=== PATIENT | female | born 1935 | race Caucasian/White ===

== ENCOUNTER 2017-12-01 14:20 | Emergency (ER) | payer MEDICARE ==
[~2017-12-01] VITALS: Ht 180.3 cm; Wt 64.0 kg
[~2017-12-01 14:20] MED LIST: AMLODIPINE BESY10 MG PO; AMLODIPINE BESYL5 MG PO; ASPIR 8181 MG PO; ATIVAN0.5 MG PO; BIOTIN PO; BUSPIRONE HCL5 MG PO; DOXAZOSIN MESYLA2 MG PO; FISH OIL500 M1 PO; FLURBIPROFEN50 MG PO; FOLIC PO; FUROSEMIDE40 MG PO; HYDROCODON-ACE1 EA12 PO; MACRODANTIN100 MG PO; NAMENDA10 MG; NITROFURANTOIN100 MG PO; PAROXETINE HCL40 MG PO; SIMVASTATIN40 MG PO; VIT B CMPLX PO; VITAMIN B-12 PO; VITAMIN B-6 PO; VITAMIN C PO; [UNRECOGNIZED DRUG - OTHER] PO
--- OUTSIDE RECORDS SUMMARY | 2017-12-01 14:24 | XMS REPORT ---
Author Author [facility] Address Unknown Phone Unavailable Care Team Providers Care Machining Associate Name Role Phone SHERLEY CLAROS Unavailable Unavailable Problems This patient has no known problems. Allergies, Adverse Reactions, Alerts This patient has no known allergies or adverse reactions. Medications This patient has no known medications. Results Test Description Test Time Test Comments Text Results Atomic Results Result Comments MRI BRAIN WO [place] [address] Patient Name: SHERRON NEW MR #: [id number] : 1935 Age/Sex: 81/F Req # : [id number] Adm Physician: SHERLEY CLAROS MD Ordered by: ALPHONSE HOYT MD Report #: [id number] Location: [facility] Room/Bed: [facility] ____ Procedure: [id number] MRI/MRI BRAIN WO Exam Date: 06/30/17 Exam Time: 0850 REPORT STATUS: Signed Examination: MRI BRAIN WITHOUT CONTRAST History: Left arm tingling, weakness and difficulty with speech. Comparison studies: Head CT performed earlier the same day, June 30, 2017. Technique: Sagittal T2; axial DWI, FLAIR, GRE or SWI, T1, Coronal FLAIR. Intravenous contrast: None Findings: Scalp: No abnormal signal. No masses. Bone marrow: Normal in signal intensity. Brain volume: Adequate for age. No volume loss. Ventricles: Normal in size and configuration. No hydrocephalus. Extra-axial spaces : No abnormalities. Parenchyma: There are punctate and confluent areas of T2/FLAIR hyperintensity in the periventricular and subcortical white matter , nonspecific. No masses, hemorrhage, or acute vascular insults. Suprasellar and sellar region: No abnormalities. Craniocervical junction: No abnormalities. The foramen magnum is patent. No Chiari malformations. Vessels: Normal flow-voids in the arteries and sinuses. Additional findings :Bilateral slitlike orbital lenses. IMPRESSION: 1. No acute intracranial abdomen, specifically, no acute infarct. 2. Mild chronic microvascular ischemic change. Signed by: Dr. Dione Troncoso M.D. on 06/30 9:58 AM Dictated By: DIONE MOISE MD 7 Transcribed By: ALONDRA on 06/30/17957 COPY TO: ALPHONSE HOYT MD CT BRAIN WO [place] [address] Patient Name: SHERRON NEW MR #: [id number] : 1935 Age/Sex: 81/F Req # : [id number] Adm Physician: Ordered by: ALPHONSE HOYT MD Report # : [id number] Location: ER Room/Bed: Procedure: [id number] CT/CT BRAIN WO Exam Date: 06/30/17 Exam Time: 0610 REPORT STATUS: Signed History:Left-sided weakness Comparison studies:None Technique: Axial images were obtained from the skull base to the vertex. Coronal and sagittal images reconstructed from the axial data. Intravenous contrast: None Findings: Scalp/skull: No abnormalities. Extra-axial spaces: Left retrocerebellar arachnoid cyst. No fluid collections. Brain sulci: Mildly prominent. Ventricles: Mild compensatory dilatation. No hydrocephalus. Parenchyma: Few hypodensities in the supratentorial white matter are small vessel ischemic changes. No masses, hemorrhage, acute or chronic cortical vascular insults. Sellar/suprasellar region: No abnormalities. Craniocervical junction: Patent foramen magnum. No Chiari one malformation. Incidental findings: Atherosclerotic calcifications in the carotid siphons . Impression: No acute abnormalities. Chronic findings: 1. Mild generalized volume loss. 2. Mild supratentorial white matter small vessel ischemic changes. Signed by: DR Santos Win M.D. on 06/30/2017 6:30 AM Dictated By: SANTOS KELLEY MD 9 COPY TO: ALPHONSE HOYT MD CHEST SINGLE (PORTABLE) [place] [address] Patient Name: SHERRON NEW MR #: [id number] : 1935 Age/Sex: 81/F Req #: [id number] Adm Physician: Ordered by: ALPHONSE HOYT MD Report #: [id number] Location: ER Room/Bed: ___ Procedure: [id number] DX/CHEST SINGLE (PORTABLE) Exam Date: 06/30/17 Exam Time: 619 REPORT STATUS: Signed CHEST SINGLE (PORTABLE), 06/30/2017 5:58 AM Technique: CHEST SINGLE (PORTABLE) Comparison: None available. Clinical history: Shortness of breath Findings: Heart size is within normal limits. Mildly tortuous thoracic aorta. Linear right midlung atelectasis or scarring. No consolidation, effusion or pneumothorax. Scoliotic curvature of the spine. Impression: 1. Lines/ Tubes: None 2. No acute abnormality. Signed by: Dr Isauro Colin MD on 6:39 AM Dictated By: ISAURO COLIN MD 8 Transcribed By: ALONDRA on 06/30/17638 COPY TO: ALPHONSE HOYT MD
--- OUTSIDE RECORDS SUMMARY | 2017-12-01 14:24 | XMS REPORT | Clinical Summary ---
Author Author [facility] Organization [facility] Address Unknown Phone Unavailable Care Team Providers Care Gastroenterology Manager Name Role Phone Travis Montgomery MD PCP Allergies Active Allergy Reactions Severity Noted Date Comments Cephalexin 03/17/2017 Morphine Other (See Comments) 03/17/2017 hallucinations Pentazocine Lactate Other (See Comments) 03/17/2017 headache Tramadol Other (See Comments) 03/17/2017 confusion Iodine Rash Low 03/17/2017 Nitrofurantoin Rash Low 03/17/2017 Monohyd/M-Cryst Current Medications Prescription Sig. Disp. Refills Start End Date Status Date amLODIPine (NORVASC) 10 Take 10 mg by mouth Active mg tablet daily. atorvastatin (LIPITOR) 40 Take 40 mg by mouth Active MG tablet daily. acetaminophen-codeine Take 1 tablet by mouth Active (TYLENOL WITH CODEINE #3) every 6 (six) hours as 300-30 mg per tablet needed for moderate pain. biotin 10,000 mcg capsule Take 1 tablet by mouth Active daily. cholecalciferol, vitamin Take 1,000 Units by mouth Active D3, (VITAMIN D3) 1,000 daily. unit capsule furosemide (LASIX) 40 mg Take 40 mg by mouth 2 Active tablet (two) times a day as needed. B complex with C#20-folic Take by mouth daily. Active acid 1 mg capsule aspirin (ECOTRIN) 81 MG Take 81 mg by mouth 04/05/20 Discontin enteric coated tablet daily. 17 ued rivaroxaban (XARELTO) 10 Take 1 tablet (10 mg 30 tablet 0 04/05/20 05/05/20 mg tablet total) by mouth daily for 17 17 30 days. HYDROcodone-acetaminophen Take 1 tablet by mouth 04/05/20 04/25/20 (NORCO) 5-325 mg per every 6 (six) hours as 17 17 tablet needed for severe pain for up to 60 doses. Max Daily Amount: 4 tablets Active Problems Problem Noted Date Primary osteoarthritis of right knee 04/02/2017 Encounters Date Type Specialty Care Team Description 11/04/2017 Hospital Radiology Basim Parekh MD Right knee pain, Encounter unspecified chronicity;Left knee pain, unspecified chronicity 11/04/2017 Ancillary Access Basim Parekh MD Right knee pain, Orders unspecified chronicity;Left knee pain, unspecified chronicity 11/04/2017 Ancillary Access Basim Parekh MD Right knee pain, Orders unspecified chronicity;Left knee pain, unspecified chronicity 11/04/2017 Transcribe Access Basim Parekh MD Right knee pain, Orders unspecified chronicity (Primary Dx);Left knee pain, unspecified chronicity 07/09/2017 Hospital Radiology Basim Parekh MD Presence of both Encounter artificial knee joints 07/09/2017 Ancillary Access Basim Parekh MD Presence of both Orders artificial knee joints 07/09/2017 Transcribe Access Basim Parekh MD Presence of both Orders artificial knee joints (Primary Dx) 04/17/2017 Lab Lab Basim Parekh MD Right knee pain, unspecified chronicity (Primary Dx) 04/02/2017 [facility] General Surgery Basim Parekh MD Primary osteoarthritis of - Encounter right knee 04/05/2017 04/02/2017 Anesthesia General Surgery Andrea Tellez 04/02/2017 Procedure Pass General Surgery 04/02/2017 Surgery General Surgery Basim Parekh MD ARTHROPLASTY, KNEE, TOTAL RIGHT 03/17/2017 Hospital Radiology Basim Parekh MD Encounter 02/12/2017 Hospital Radiology Basim Parekh MD Osteoarthrosis, Encounter localized, primary, involving lower leg, right 02/11/2017 Transcribe Access Basim Parekh MD Osteoarthrosis, Orders localized, primary, involving lower leg, right (Primary Dx) after 11/30/2016 Family History Medical History Relation Name Comments Heart disease Brother Asthma Father Diabetes Father Relation Name Status Comments Brother Father Mother organ failure Social History Tobacco Use Types Packs/Day Years Used Date Former Smoker Cigarettes 30 Quit: 04/02/1985 Comments: 3 cigs per day Alcohol Use Drinks/Week oz/Week Comments Yes social Sex Assigned at Date Recorded Not on file Last Filed Vital Signs Vital Sign Reading Time Taken Blood Pressure 112/57 04/05/2017 11:30 AM CDT Pulse 96 04/05/2017 11:30 AM CDT Temperature 36.8 C (98.3 F) 04/05/2017 11:30 AM CDT Respiratory Rate 18 04/05/2017 11:30 AM CDT Oxygen Saturation 94% 04/05/2017 11:30 AM CDT Inhaled Oxygen - - Concentration Weight 68.6 kg (151 lb 3 oz) 04/03/2017 8:00 AM CDT Height 149.9 cm (4' 11") 04/03/2017 8:00 AM CDT Body Mass Index 30.54 04/03/2017 8:00 AM CDT Plan of Treatment Health Maintenance Due Date Last Done Comments ZOSTER VACCINE 1995 PNEUMOCOCCAL-13 2000 INFLUENZA VACCINE 05/27/2017 09/15/2011 PNEUMOCOCCAL Completed 09/15/2011 POLYSACCHARIDE VACCINE AGE 65 AND OVER Implants Implanted Type Area Machine Presser Device Expiration Model / Identifier Date Serial / Lot Itotal Ps Ipoly Implant Kit - IPM Right: [employer] 09/25/2017 [id number] - [id number] IMPLANT Knee / Implanted: Qty: 1 on 04/02/2017 by DEVICES [id number] / Basim Parekh MD NONE 32x6mm Patella - Snone - [id number] IPM Right: [employer] 2017 [id number] Implanted: Qty: 1 on 04/02/2017 by IMPLANT Knee / Basim Parekh MD DEVICES NONE / [id number] [employer] Bone [employer]iv[employer] With Gm 40gr Orthopedic Right: [employer] 04/25/2018 [id number] / [place] - [id number] [employer] / Implanted: Qty: 2 on 04/02/2017 by Implants [id number] Basim Parekh MD Procedures Procedure Name Priority Date/Time Associated Diagnosis Comments ANESTHESIA INTUBATION Routine 04/02/2017 2:32 PM CDT Procedure Note - Andrea Tellez - 04/02/2017 2:27 PM CDT Airway Date/Time: 04/02/2017 12:16 PM Performed by: ANDREA TELLEZ Authorized by: ATILIO GROVE Location: OR Urgency: Elective Difficult Airway: No Anesthesio logist: ATILIO GROVE Other Anesthesia Staff: ANDREA TELLEZ Performed by: other anesthesia staff Preoxygena taj with 100% O2: Yes C-spine Precaution s Maintained Throughout : Yes Mask Ventilatio n: Easy mask Final Airway Type: Endotrache al airway Final Endotrache al Airway: ETT Cuffed: Yes Technique Used: Direct laryngosco py Insertion Site: Oral Blade Type: [place] Laryngosco pe Blade/Vide olaryngosc ope Blade Size: 2 ETT Size (mm): 7.0 Cuff at minimum occlusion pressure: Yes Measured from: Teeth ETT to Teeth (cm): 19 Placement Verified by: CO2 detection, direct visualizat ion and equal breath sounds Laryngosco pic view: Grade I - full view of glottis Rapid Sequence Induction (RSI): No Modified RSI: No Number of Attempts at Approach: 1 Lips and teeth in preanesthe tic condition ANESTHESIA PERIPHERAL Routine 04/02/2017 BLOCK 11:08 AM CDT Procedure Note - Atilio Grove MD - 04/02/2017 11:06 AM CDT Peripheral Block Performed by: ATILIO GROVE Authorized by: ATILIO GROVE Patient Location: Holding area Start Time: 04/02/2017 10:50 AM End Time: 04/02/2017 11:06 AM Staff: Anesthesio mingot: ATILIO GROVE Performed by: Anesthesio kadie Preprocedu re: patient identified , IV checked, site and side verified, risks and benefits discussed, procedure verified, surgical consent complete, patient position confirmed, monitors and equipment checked, pre-op evaluation complete and site marked Peripheral Nerve Block: Patient Position: Supine Prep: ChloraPrep Monitoring : Blood pressure monitoring , continuous pulse oximetry and heart rate Block Type: Lateral femoral cutaneous nerve Laterality : Right Injection Technique: Single injection Procedures : ultrasound guided Ultrasound documentat ion: Not saved Local Infiltrati on (See MAR for details): Ropivacain e Needle: Needle Type: Short-beve l Needle Gauge: 21 G Needle Length: 4 in Assessment : Injection Assessment : Visualized needle/loc al anesthetic surroundin g nerve, visualized pertinent vascular structures and nerves, needle tip visualized at all times during injection of medication , no symptoms of intraneura l/intraven ous injection and intermitte nt aspiration during local anesthetic administra tion Paresthesi a Pain: None Heart Rate Change: No Slow Fractionat ed Injection: No Block outcome: No apparent complicati ons, patient comfortabl e and patient tolerated procedure well ARTHROPLASTY, KNEE, TOTAL 04/02/2017 RIGHT KNEE OA M17.11 RIGHT 10:40 AM CDT Special Needs 04/01/17 @1117 1 jason oliver here for case...[facility] 03/25/17 @1422 notified [facility] of procedure. ..smaCONFO RMIS after 11/30/2016 Results * XR Knee 3 Vw Bilateral (11/04/2017 10:45 AM) Specimen Performing Laboratory [facility] [address] [place] [address] Narrative EXAMINATION:XR KNEE 3 VW BILATERAL CLINICAL HISTORY:M25.561 Pain in right knee, M25.562 Pain in left knee, M25.661 COMPARISON:None. IMPRESSION: Postoperative radiograph demonstrates a right total knee prosthesis.There is normal alignment with no fracture. [facility]-[id number] Procedure Note Interface, Radiology Results Incoming - 11/04/2017 11:14 AM MARKETING INFORMATION MANAGER EXAMINATION: XR KNEE 3 VW BILATERAL CLINICAL HISTORY: M25.561 Pain in right knee, M25.562 Pain in left knee, M25.661 COMPARISON: None. IMPRESSION: Postoperative radiograph demonstrates a right total knee prosthesis. There is normal alignment with no fracture. [facility]-[id number] * XR Knee 1 Or 2 Vw Bilateral (07/09/2017 12:40 PM) Specimen Performing Laboratory [facility] [address] [place] [address] Narrative EXAMINATION:XR KNEE 1 OR 2 VW BILATERAL CLINICAL HISTORY:Z96.653 Presence of artificial knee jointbilateral, Z96.653 ARTIFICIAL KNEE COMPARISON:April 02, 2017 IMPRESSION: 1.Evaluation of the right knee demonstrates postsurgical changes relating to total right knee arthroplasty. There is hardware along the distal right femur and proximal tibia. There are also postsurgical changes involving the patella. Alignment is satisfactory. 2.2 view evaluation of the left knee demonstrates no evidence to suggest an acute fracture. Alignment is normal and articulation is intact. [id number] Procedure Note Interface, Radiology Results Incoming - 07/09/2017 1:19 PM CDT EXAMINATION: XR KNEE 1 OR 2 VW BILATERAL CLINICAL HISTORY: Z96.653 Presence of artificial knee joint bilateral, Z96.653 ARTIFICIAL KNEE COMPARISON: April 02, 2017 IMPRESSION: 1. Evaluation of the right knee demonstrates postsurgical changes relating to total right knee arthroplasty. There is hardware along the distal right femur and proximal tibia. There are also postsurgical changes involving the patella. Alignment is satisfactory. 2. 2 view evaluation of the left knee demonstrates no evidence to suggest an acute fracture. Alignment is normal and articulation is intact. [id number] * Body fluid consult (04/17/2017 9:23 AM) Component Value Ref Range Body fluid consult DoneComment: Reviewed by Dr. Jasmine 04/17/17: Agree with cell count. Specimen Performing Laboratory Fluid [facility] DEPARTMENT OF PATHOLOGY AND GENOMIC MEDICINE [address] [place] [address] [place] [address] * Cell count and differential, body fluid (04/17/2017 9:23 AM) Component Value Ref Range Misc fluid type Synovial Color, fluid Red Appearance, fluid Cloudy (A) RBC, fluid 27519 /CMM Nucleated cells, fluid 1400 /CMM Fluid mononuclear cell 1 Neutrophils, fluid 77 % Lymphocytes, fluid 22 % Specimen Performing Laboratory Fluid [facility] DEPARTMENT OF PATHOLOGY AND GENOMIC MEDICINE [address] [place] [address] [place] [address] * Hemoglobin & hematocrit (04/05/2017 11:13 AM) Only the most recent of 4 results within the time period is included. Component Value Ref Range HGB 9.5 (L) 12.0 - 16.0 g/dL HCT 27.9 (L) 37.0 - 47.0 % Specimen Performing Laboratory Blood [facility] DEPARTMENT OF PATHOLOGY AND [address] [place] [address] * Estimated GFR (04/03/2017 5:15 AM) Only the most recent of 2 results within the time period is included. Component Value Ref Range GFR Non Af Amer >90 mL/min/1.73 m2 GFR Af Amer >90 mL/min/1.73 m2 Comment: Chronic kidney disease: <60 mL/min/1.73m2 Kidney failure: <15 mL/min/1.73m2 The estimated GFR is calculated from the IDMS-traceable Modification of Diet in Renal Disease Equation. The accuracy of the calculation is poor when the creatinine is normal. Calculated values >90 mL/min/1.73m2 are not reported. This equation has not been validated in children (<18 years), women, the elderly (>70 years), or ethnic groups other than Caucasians and Americans. Specimen Performing Laboratory Plasma specimen [facility] DEPARTMENT PATHOLOGY AND [address] [place] [address] * Creatinine level (04/03/2017 5:15 AM) Component Value Ref Range Creatinine 0.6 0.5 - 0.9 mg/dL Specimen Performing Laboratory Plasma specimen [facility] DEPARTMENT PATHOLOGY AND [address] [place] [address] * XR Knee 1 Or 2 Vw Right (04/02/2017 5:15 PM) Specimen Performing Laboratory [facility] [address] [place] [address] Narrative EXAMINATION:XR KNEE 1 OR 2 VW RIGHT CLINICAL HISTORY:total knee arthoplasty COMPARISON:None. Findings: The patient is post right total knee arthroplasty. The components appear well seated. There are drains noted in the suprapatellar bursa. IMPRESSION: Postop right total knee arthroplasty. [id number] Procedure Note Interface, Radiology Results Incoming - 04/02/2017 6:33 PM CDT EXAMINATION: XR KNEE 1 OR 2 VW RIGHT CLINICAL HISTORY: total knee arthoplasty COMPARISON: None. Findings: The patient is post right total knee arthroplasty. The components appear well seated. There are drains noted in the suprapatellar bursa. IMPRESSION: Postop right total knee arthroplasty. [id number] * Surgical pathology request (04/02/2017 4:44 PM) Component Value Ref Range Surgical pathology report See link below for PDF Lab Report Specimen Performing Laboratory [facility] DEPARTMENT PATHOLOGY AND [address] [place] [address] * Type and screen (03/31/2017 12:04 PM) Component Value Ref Range ABO grouping O Rh type POS Antibody screen NEG Specimen Performing Laboratory Blood [facility] DEPARTMENT PATHOLOGY AND [address] [place] [address] * XR Chest 2 Vw (03/17/2017 3:33 PM) Specimen Performing Laboratory [facility] [address] [place] [address] Narrative EXAMINATION:XR CHEST 2 VW CLINICAL HISTORY:81 years Female M17.11 Unilateral primary osteoarthritis right knee, preop [facility] COMPARISON:None IMPRESSION: 1.Heart size and central vasculature normal. The thoracic aorta is calcified and tortuous. 2.The lungs are clear. 3.The bones are demineralized with degenerative changes in the spine. There is some leftward curvature in the thoracic spine. [id number] Procedure Note Hm Interface, Radiology Results Incoming - 03/17/2017 3:49 PM CDT EXAMINATION: XR CHEST 2 VW CLINICAL HISTORY:81 years Female M17.11 Unilateral primary osteoarthritis right knee, preop [facility] COMPARISON: None IMPRESSION: 1. Heart size and central vasculature normal. The thoracic aorta is calcified and tortuous. 2. The lungs are clear. 3. The bones are demineralized with degenerative changes in the spine. There is some leftward curvature in the thoracic spine. [id number] * ECG 12 lead (03/17/2017 3:00 PM) Component Value Ref Range Ventricular rate 74 Atrial rate 74 VA interval 162 QRSD interval 78 QT interval 396 QTC interval 439 P axis 1 56 QRS axis 1 27 T wave axis 34 EKG impression Normal sinus rhythm with sinus arrhythmia-Cannot rule out Anterior infarct , age undetermined-Abnormal ECG-No previous ECGs available- Specimen Performing Laboratory [facility] [address] [place] [address] * Urinalysis screen and microscopy, with reflex to culture (03/17/2017 2:09 PM) Component Value Ref Range Specimen site Clean catch Color, UA Yellow Appearance, UA Slightly-Cloudy Specific gravity, UA 1.018 1.001 - 1.035 pH, UA 5.0 5.0 - 8.5 Protein, UA Negative Negative Glucose, UA Negative Negative Ketones, UA Trace (A) Negative Bilirubin, UA Negative Negative Blood, UA Negative Negative Nitrite, UA Negative Negative Urobilinogen, UA Negative <2.0 Leukocyte esterase, UA Negative Negative Epithelial cells, UA Many /HPF WBC, UA 0-5 0 - 4 /HPF RBC, UA 0-5 0 - 2 /HPF Bacteria, UA Few None seen Yeast, UA None seen Yeast with pseudohyphae, None seen UA Hyaline casts, UA 11-20 /LPF Specimen Performing Laboratory Urine [facility] DEPARTMENT OF PATHOLOGY AND GENOMIC MEDICINE [address] [place] [address] * Partial thromboplastin time, activated (03/17/2017 2:09 PM) Component Value Ref Range PTT 28.1 23.0 - 36.0 sec Comment: PTT therapeutic range for unfractionated heparin is 61.0-112.0 seconds which corresponds to Anti-Xa 0.3-0.7 U/ml. Specimen Performing Laboratory Blood [facility] DEPARTMENT OF PATHOLOGY AND [facility] [address] [place] [address] * Sedimentation rate (03/17/2017 2:09 PM) Component Value Ref Range Sedimentation rate 36 (H) 0 - 20 mm/hr Specimen Performing Laboratory Blood [facility] DEPARTMENT OF PATHOLOGY AND [facility] [address] [place] [address] * Prothrombin time with INR (03/17/2017 2:09 PM) Component Value Ref Range Prothrombin time 13.4 12.0 - 15.0 sec INR 1.0 Comment: The International Normalized Ratio (INR) is a therapeutic monitoring tool for patients who are stable on oral anticoagulant therapy. An INR of 2.0-3.0 is suggested for deep vein thrombosis/pulmonary embolism. Specimen Performing Laboratory Blood [facility] DEPARTMENT OF PATHOLOGY AND [facility] [address] [place] [address] * CBC with platelet and differential (03/17/2017 2:09 PM) Component Value Ref Range WBC 8.34 4.50 - 11.00 k/uL RBC 4.36 4.20 - 5.50 m/uL HGB 13.4 12.0 - 16.0 g/dL HCT 39.4 37.0 - 47.0 % MCV 90.4 82.0 - 100.0 fL MCH 30.7 27.0 - 34.0 pg MCHC 34.0 31.0 - 37.0 g/dL RDW - SD 40.6 37.0 - 55.0 fL MPV 10.6 8.8 - 13.2 fL Platelet count 204 150 - 400 k/uL Nucleated RBC 0.00 /100 WBC Neutrophils 56.0 39.0 - 69.0 % Lymphocytes 36.0 25.0 - 45.0 % Monocytes 6.4 0.0 - 10.0 % Eosinophils 1.4 0.0 - 5.0 % Basophils 0.0 0.0 - 1.0 % Immature granulocytes 0.2Comment: "Immature granulocytes" 0.0 - 1.0 % (promyelocytes, myelocytes, metamyelocytes) Specimen Performing Laboratory Blood [facility] PATHOLOGY AND [address] [place] [address] * Urine culture (03/17/2017 2:09 PM) Component Value Ref Range Urine culture SEE COMMENTComment: Bacteriuria screen negative. Specimen Performing Laboratory Urine [facility] PATHOLOGY AND [address] [place] [address] * MRSA screen culture (03/17/2017 2:09 PM) Component Value Ref Range MRSA screen culture No Methicillin Resistant Staphylococcus aureus isolate isolated. Comment: Specimen Information Specimen Source: Nares Specimen Site: Not specified Specimen Performing Laboratory Nares - Not specified [facility] PATHOLOGY AND [address] [address] * Basic metabolic panel (03/17/2017 2:09 PM) Component Value Ref Range Sodium 142 135 - 148 mEq/L Potassium 3.9 3.5 - 5.0 mEq/L Chloride 99 98 - 112 mEq/L CO2 28 24 - 31 mEq/L Anion gap 15 7 - 15 mEq/L Comment: Starting from January , anion gap calculation no longer incorporates potassium. Please note the change. BUN 15 8 - 23 mg/dL Creatinine 0.8 0.5 - 0.9 mg/dL Glucose 109 (H) 65 - 99 mg/dL Calcium 10.3 (H) 8.8 - 10.2 mg/dL Specimen Performing Laboratory Plasma specimen [facility] PATHOLOGY [address] [place] [address] * CT Lower Extremity Wo Contrast Right (02/12/2017 9:43 AM) Specimen Performing Laboratory [address] LOWER EXTREMITY WO CONTRAST RIGHT CLINICAL INDICATION:M17 11 Order diagnosis - Unilateral primary osteoarthritisright knee TECHNIQUE:Multidetector CT of the right knee was performed without intravenous iodinated contrast with automated exposure control and/or iterative reconstruction techniques to radiation dose. Images were performed per [employer] protocol. COMPARISON:None FINDINGS: HIP: The right hip demonstrates no fracture or significant osteoarthritis ANKLE: No fracture or suspicious osseous lesion. Mild enthesopathic changes at the Achilles insertion. KNEE: Moderate osteoarthritic changes of the knee are present with joint space narrowing, subchondral cysts and osteophyte formation, greater in the lateral than medial femorotibial compartments. Spurring of the patellofemoral compartment is also noted with a small joint effusion and Ledesma's cyst. SOFT TISSUES: Periarticular tissues about the knee are unremarkable apart from mild superficial lateral varicosities. There is no significant muscle atrophy. IMPRESSION: Osteoarthritis of the knee on planning prosthesis CT as described. Thank you for allowing us to participate in the care of your patient. [id number] Procedure Note Hm Interface, Radiology Results Incoming - 02/12/2017 10:[address] LOWER EXTREMITY WO CONTRAST RIGHT CLINICAL INDICATION: M17 11 Order diagnosis - Unilateral primary osteoarthritis right knee TECHNIQUE: Multidetector CT of the right knee was performed without intravenous iodinated contrast with automated exposure control and/or iterative reconstruction techniques to radiation dose. Images were performed per [employer] protocol. COMPARISON: None FINDINGS: HIP: The right hip demonstrates no fracture or significant osteoarthritis ANKLE: No fracture or suspicious osseous lesion. Mild enthesopathic changes at the Achilles insertion. KNEE: Moderate osteoarthritic changes of the knee are present with joint space narrowing, subchondral cysts and osteophyte formation, greater in the lateral than medial femorotibial compartments. Spurring of the patellofemoral compartment is also noted with a small joint effusion and Ledesma's cyst. SOFT TISSUES: Periarticular tissues about the knee are unremarkable apart from mild superficial lateral varicosities. There is no significant muscle atrophy. IMPRESSION: Osteoarthritis of the knee on planning prosthesis CT as described. Thank you for allowing us to participate in the care of your patient. [id number] after 11/30/2016 Insurance Payer Benefit Subscriber ID Type Phone Address Plan / Group [employer] MEDICARE AARP [id number] HMO MEDICARE COMPLETE [facility] [place] [address]
== END 2017-12-01 16:04 | disposition home or self-care (01) ==
LOC: ER 14:20
DX: R10.31 Right lower quadrant pain (principal); I10 Essential (primary) hypertension
CPT/HCPCS: 99281

== ENCOUNTER → 2018-03-24 | Outpatient (CLI) | payer MEDICARE ==
--- NOTE | 2018-03-24 19:47 | Diagnostic Imaging Report ---
PROCEDURE:X-RAY PELVIS, AP VIEW COMPARISON:None. INDICATIONS:INTERSTIM PLACEMENT FINDINGS: Normal mineralization. No acute displaced fracture or dislocation. No lytic or blastic lesion. Sacral arches are preserved. Neural stimulator device in the soft tissues of the left posterior pelvis/gluteal region, with a distal portion of the wire, likely traversing the left S4 neural foramen. 3 mm rounded radiopaque density projecting between the left transverse processes of L4 and L5. No other radiopaque densities. No acute bony abnormalities. Calcified injection granuloma in the left gluteal soft tissues. CONCLUSION: 1. Neural stimulator device in the soft tissues of the left posterior pelvis/gluteal region, with distal portion of the wire, likely traversing the left S4 neural foramen. 2. 3 mm radiopaque density projecting between the left transverse processes of L4 and L5 may represent a ureteral calculus. Correlate for hematuria. Ramos Atwood M.D. Dictated by: Ramos Atwood M.D. on 03/24/2018 at 19:50 Electronically approved by: Ramos Atwood M.D. on 03/24/2018 at 19:50
--- NOTE | 2018-03-24 19:49 | Diagnostic Imaging Report ---
PROCEDURE:SACRUM X-RAY INDICATION: COMPARISON:None. FINDINGS: Normal mineralization. No acute displaced fracture or dislocation. No lytic or blastic lesion. Sacral arches are preserved. Neural stimulator device in the soft tissues of the left posterior pelvis/gluteal region, with a distal portion of the wire, likely traversing the left S4 neural foramen. 3 mm rounded radiopaque density projecting between the left transverse processes of L4 and L5. No other radiopaque densities. No acute bony abnormalities. Calcified injection granuloma in the left gluteal soft tissues. CONCLUSION: 1. Neural stimulator device in the soft tissues of the left posterior pelvis/gluteal region, with distal portion of the wire, likely traversing the left S4 neural foramen. 2. 3 mm radiopaque density projecting between the left transverse processes of L4 and L5 may represent a ureteral calculus. Correlate for hematuria. Ramos Atwood M.D. Dictated by: Ramos Atwood M.D. on 03/24/2018 at 19:51 Electronically approved by: Ramos Atwood M.D. on 03/24/2018 at 19:51
== END ==
LOC: RAD 14:15
PROVIDERS: ATTEND Urology
DX: N81.89 Other female genital prolapse (principal); N39.41 Urge incontinence
CPT/HCPCS: 72170; 72220

== ENCOUNTER → 2018-08-13 | Outpatient (CLI) | payer MEDICARE ==
--- NOTE | 2018-08-13 16:40 | Diagnostic Imaging Report ---
Exam: Abdominal film Clinical History: ] Flank pain, history of kidney stones, trouble with urination Comparison: None. DISCUSSION: Frontal view of the abdomen shows a nonobstructive bowel gas pattern with mild amount of retained stool.There are no dilated, air-filled loops of bowel. No radiopaque densities project over the renal shadows, expected course of the ureters or bladder. Moderate rightward curvature of the lumbosacral spine, with associated degenerative changes. Mild degenerative changes bilateral hip and sacroiliac joints. Neural stimulator likely in the soft tissues of the left flank/upper gluteal region, with wire traversing left sacral neural foramen IMPRESSION: 1. Nonobstructive bowel gas pattern. 2. No radiopaque densities project over the genitourinary system. The staff physician below has personally reviewed this exam on the date of dictation. Signed by: Dr. Ramos Atwood M.D. on 08/13/2018 4:37 PM
--- NOTE | 2018-08-13 16:44 | Diagnostic Imaging Report ---
EXAMINATION: Pelvis Films CLINICAL HISTORY:] Pain, flank pain, history of kidney stones COMPARISON: None. DISCUSSION: The bones are well-mineralized. No acute, displaced fractures or dislocations. No osteolytic or osteoblastic lesions. 3 mm calcific density projects over the L5 left transverse process and contains a well-defined lucent center, likely representing a phlebolith. Moderate rightward curvature of the lumbosacral spine, with associated degenerative changes. Mild degenerative changes bilateral hip and sacroiliac joints. Neural stimulator likely in the soft tissues of the left flank/upper gluteal region, with wire traversing left sacral neural foramen Calcified injection granuloma in the left gluteal region. IMPRESSION: 1. No suspicious calcifications project over the expected course of the ureters or bladder. 2. 3 mm calcific density projecting over the L5 left transverse process likely represents a phlebolith. Signed by: Dr. Ramos Atwood M.D. on 08/13/2018 4:40 PM
--- NOTE | 2018-08-13 16:46 | Diagnostic Imaging Report ---
Exam: Sacrum x-rays History: Kidney stones, right flank pain Comparison: None. Findings: The bones are well-mineralized. No acute, displaced fractures or dislocations. The hip and sacroiliac joints are unremarkable. No osteolytic or osteoblastic lesions. Moderate rightward curvature of the lumbosacral spine, with associated degenerative changes. Mild degenerative changes bilateral hip and sacroiliac joints. Neural stimulator likely in the soft tissues of the left flank/upper gluteal region, with wire traversing left S3-S4 sacral neural foramen Impression: 1. No abnormal calcifications. Signed by: Dr. Ramos Atwood M.D. on 08/13/2018 4:43 PM
== END ==
LOC: RAD 15:18
PROVIDERS: ATTEND Urology
DX: M54.5 Low back pain (principal); N39.41 Urge incontinence; Z87.442 Personal history of urinary calculi
CPT/HCPCS: 72170; 72220; 74018

== ENCOUNTER → 2018-09-30 | Outpatient (CLI) | payer MEDICARE ==
--- NOTE | 2018-09-30 15:27 | Diagnostic Imaging Report ---
EXAM: CT Abdomen and Pelvis WITHOUT contrast INDICATION: Flank pain COMPARISON: None. TECHNIQUE: Abdomen and Pelvis was scanned utilizing a multidetector helical scanner without the use of IV contrast. Coronal and sagittal reformations were obtained. IV CONTRAST: None COMPLICATIONS: None RADIATION DOSE: Total DLP: 301 mGy*cm Estimated effective dose: (DLP x 0.015 x size factor) mSv CTDIvol has been reviewed. It is below the limits set by the Radiation Protocol Committee (RPC). Appropriate CT dose reduction techniques were utilized. FINDINGS: Abdomen: Lung Bases: No acute findings. Solid Organs: Nonenhanced images of the liver, adrenals, kidneys, spleen, and pancreas are unremarkable. No hydronephrosis, hydroureter, or renal calculi. No definite ureteral calculi. Calcifications adjacent to both ureters, particularly on the left appear vascular. Upper GI Tract: No small bowel obstructive changes. Vascularity: Moderate aortic vascular calcifications with no aneurysm. 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 Lymph Nodes: Within limitations of nonenhanced exam, no suspicious adenopathy. Other: None. Pelvis: Bladder: Unremarkable. Other: Uterus absent. Colon: Moderate stool. There are a few diverticula. No acute colonic findings, however. Bones: Grade 1 degenerative anterolisthesis L4 and L5 with moderate lower lumbar endplate degenerative changes and facet degenerative changes. Stimulator and wires visualized sacrum partially. IMPRESSION: 1. No definite acute findings within the abdomen or pelvis. See above for chronic appearing changes. Signed by: Dr. Viktor Tian MD on 09/30/2018 3:24 PM
== END ==
LOC: CT 14:23
PROVIDERS: ATTEND Urology
DX: N20.0 Calculus of kidney (principal)
CPT/HCPCS: 74176

== ENCOUNTER 2019-01-06 09:25 | Emergency (ER) | payer MEDICARE ==
[~2019-01-06] VITALS: Ht 149.9 cm; Wt 61.2 kg
--- OUTSIDE RECORDS SUMMARY | 2019-01-06 09:28 | XMS REPORT | Clinical Summary ---
Author Author [facility] Address Unknown Phone Unavailable Care Team Providers Care Marine Engineering Professor Name Role Phone Travis Montgomery MD PCP Allergies Comments Active Allergy Reactions Severity Noted Date Iodine Rash Low 03/17/2017 Cephalexin 03/17/2017 Nitrofurantoin Rash Low 03/17/2017 Monohyd/M-Cryst hallucinations Morphine Other (See 03/17/2017 Comments) headache Pentazocine Lactate Other (See 03/17/2017 Comments) confusion Tramadol Other (See 03/17/2017 Comments) Medications End Date Status Medication Sig Dispensed Refills Start Date Active amLODIPine (NORVASC) 10 Take 10 mg by 0 mg tablet mouth daily. Active atorvastatin (LIPITOR) 40 Take 40 mg by 0 MG tablet mouth daily. Active acetaminophen-codeine Take 1 tablet 0 (TYLENOL WITH CODEINE #3) by mouth 300-30 mg per tablet every 6 (six) hours as needed for moderate pain. Active biotin 10,000 mcg capsule Take 1 tablet 0 by mouth daily. Active cholecalciferol, vitamin Take 1,000 0 D3, (VITAMIN D3) 1,000 Units by unit capsule mouth daily. Active furosemide (LASIX) 40 mg Take 40 mg by 0 tablet mouth 2 (two) times a day as needed. Active B complex with C#20-folic Take by mouth 0 acid 1 mg capsule daily. Active Problems Problem Noted Date Primary osteoarthritis of right knee 04/02/2017 Encounters Care Team Description Date Type Specialty Basim Parekh MD Right knee pain, unspecified chronicity (Primary Dx); Left knee pain, unspecified chronicity 08/31/2018 Transcribe Access Orders after 01/05/2018 Family History Medical History Relation Name Comments Heart disease Brother Asthma Father Diabetes Father Relation Name Status Comments Brother Father Mother organ failure Social History Date Tobacco Use Types Packs/Day Years Used Quit: 04/02/1985 Former Smoker Cigarettes 30 Comments: 3 cigs per day Alcohol Use Drinks/Week oz/Week Comments Yes social Sex Assigned at Date Recorded Not on file Industry Job Start Date Occupation Not on file Not on file Not on file Travel End Travel History Travel Start No recent travel history available. Last Filed Vital Signs Not on file Plan of Treatment Health Maintenance Due Date Last Done Comments SHINGLES VACCINES (#1) 1985 65+ PNEUMOCOCCAL VACCINE 2000 09/15/2011 (2 of 2 - PPSV23) INFLUENZA VACCINE 05/27/2018 09/15/2011 PNEUMOCOCCAL Completed 09/15/2011 POLYSACCHARIDE VACCINE AGE 65 AND OVER Implants Device Identifier Shelf Expiration Date Model / Serial / Lot Implanted Type Area Manufactur er 09/25/2017 [id number] / [id number] / NONE [employer] Ipoly Implant Kit - IPM Right: Knee CONFORMIS [id number] - [id number] IMPLANT [employer] Implanted: Qty: 1 on 04/02/2017 by DEVICES Basim Parekh MD 01/24/2018 [id number] / NONE / [id number] 32x6mm Patella - Snone - [id number] IPM Right: Knee CONFORMIS Implanted: Qty: 1 on 04/02/2017 by IMPLANT INC Basim Parekh MD DEVICES 04/25/2018 [id number] / / [id number] Cement Bone Hiviscocty With Gm 40gr Orthopedic Right: Knee DJ [place] - [id number] Surgical ORTHOPEDIC Implanted: Qty: 2 on 04/02/2017 by Implants LLC Basim Parekh MD Results Not on fileafter 01/05/2018 Insurance Payer Benefit Subscriber ID Type Phone Address Plan / Group [facility] MEDICARE AARP xxxxxxxxx [facility] MEDICARE COMPLETE MCR Advance Directives Patient has advance care planning documents, and code status on file. For more i nformation, please contact: Rolando Ramos [address] [place] [address] Date Inactivated Comments Code Status Date Activated 04/05/2017 7:51 PM Full Code 04/02/2017 5:49 PM Code Status decision reached by: Patient
--- NOTE | 2019-01-06 09:50 | NUR ---
DR SELBY AT BEDSIDE FOR PATIENT EVAL
--- NOTE | 2019-01-06 11:20 | Diagnostic Imaging Report ---
CT BRAIN WO HISTORY: Fall COMPARISON: Head CT and brain MRI 06/30/2017 Technique: Noncontrast axial scans were obtained from skull base to the vertex. Coronal and sagittal reconstructions obtained from the axial data. One or more of the following dose reduction techniques were used: Automated exposure control, adjustment of the mA and/or kV according to patient size, and/or utilization of iterative reconstruction technique. DISCUSSION: Scalp/Skull: Right frontal scalp/superficial periorbital hematoma is present. No calvarial fracture is seen. Brain sulci: Mildly prominent. Ventricles: Compensatory dilatation. Extra-axial spaces: Small arachnoid cyst posterior to the left cerebellar vermis is stable. No additional masses or fluid collections. Carotid siphon calcifications are present. Parenchyma: Mild bilateral deep white matter hypodensity is likely chronic microvascular ischemic change. Otherwise, no masses, hemorrhage, or large vascular territory acute infarct. Dural sinuses: No abnormal densities. Sellar/Suprasellar region: Intact. Skull base: Intact. Incidental findings: Both ocular lenses are thinned. IMPRESSION: 1. No acute intracranial abnormalities. 2. Mild supratentorial chronic microvascular ischemic change. Mild generalized cerebral volume loss. Signed by: Dr. Chance [place] M.D. on 01/06/2019 11:17 AM
--- NOTE | 2019-01-06 11:22 | Diagnostic Imaging Report ---
EXAM: HIP RIGHT 2-3 VW (+/- PELVIS) DATE: 01/06/2019 9:56 AM INDICATION: Fall COMPARISON: Pelvic x-ray, 08/13/2018 FINDINGS: AP pelvis: No displaced fracture or dislocation. Electronic device with lead extending to the pelvis, stable appearance. Soft tissues unremarkable. Right hip: AP and oblique views of the right hip show no displaced fracture or dislocation. There is moderate degenerative change with narrowing of the joint space medially and lateral acetabular osteophyte. IMPRESSION: No acute bony abnormality. Signed by: Dr. Marino Mccoy M.D. on 01/06/2019 11:19 AM
--- NOTE | 2019-01-06 11:25 | Diagnostic Imaging Report ---
CT CERVICAL SPINE WO HISTORY: Fall COMPARISON: Concurrent head CT TECHNIQUE: CT of the cervical spine without contrast. Sagittal and coronal reformations were created. One or more of the following dose reduction techniques were used: Automated exposure control, adjustment of the mA and/or kV according to patient size, and/or utilization of iterative reconstruction technique. FINDINGS: Mild bone demineralization limits osseous evaluation. Cervical lordosis is straightened. There is no scoliosis or subluxation. No definite acute fracture or compression deformity is seen. The craniocervical junction is intact. No gross spinal canal masses are seen. The paravertebral and paraspinal soft tissues are unremarkable. Mild to moderate multilevel spondylosis is most prominent at C5-C6 and C6-C7. Mild bilateral carotid bulb calcifications are present. IMPRESSION: No acute osseous abnormalities. Mild to moderate multilevel spondylosis, most prominent at C5-C6 and C6-C7. Signed by: Dr. Chance Adams M.D. on 01/06/2019 11:21 AM
--- NOTE | 2019-01-06 11:35 | Diagnostic Imaging Report ---
EXAM: CHEST SINGLE (NOT PORTABLE) DATE: 01/06/2019 9:56 AM INDICATION: Fall COMPARISON: None FINDINGS: Lines and tubes: None Heart size normal. No focal pulmonary opacity, pleural effusion or pneumothorax. Upper abdomen unremarkable. No acute bony abnormality. Levoscoliosis of the thoracic spine noted. IMPRESSION: No evidence for acute disease. Signed by: Dr. Marino Mccoy M.D. on 01/06/2019 11:31 AM
--- NOTE | 2019-01-06 11:40 | Diagnostic Imaging Report ---
EXAM: HUMERUS RIGHT 2+VIEWS, SHOULDER RIGHT COMPLETE, KNEE RIGHT THREE VIEWS DATE: 01/06/2019 9:56 AM INDICATION: Fall COMPARISON: None FINDINGS: Right humerus: 2 views of the right humerus show no displaced fracture or dislocation. There are mild degenerative changes at the glenohumeral and acromioclavicular joints. Soft tissues unremarkable. Right knee: 3 views of the right knee show no displaced fracture or dislocation. Arthroplasty hardware is seen appearing intact. Soft tissues unremarkable. Right shoulder: 2 views of the right shoulder show no displaced fracture or dislocation. Internal and external rotation of the humeral head is demonstrated. There is mild degenerative change at the glenohumeral and acromioclavicular joints. Soft tissues unremarkable. IMPRESSION: No acute bony abnormality. Signed by: Dr. Marino Mccoy M.D. on 01/06/2019 11:36 AM
== END 2019-01-06 12:45 | disposition home or self-care (01) ==
LOC: ER 09:25
DX: S00.11XA Contusion of right eyelid and periocular area, initial encounter (principal); R51 Headache; S00.83XA Contusion of other part of head, initial encounter; S40.011A Contusion of right shoulder, initial encounter; S50.01XA Contusion of right elbow, initial encounter; S80.01XA Contusion of right knee, initial encounter; M25.551 Pain in right hip; R11.0 Nausea; W01.0XXA Fall on same level from slipping, tripping and stumbling without subsequent striking against object, initial encounter; Y92.008 Other place in unspecified non-institutional (private) residence as the place of occurrence of the external cause; I10 Essential (primary) hypertension; G30.9 Alzheimer's disease, unspecified; F02.80 Dementia in other diseases classified elsewhere, unspecified severity, without behavioral disturbance, psychotic disturbance, mood disturbance, and anxiety; E78.5 Hyperlipidemia, unspecified
CPT/HCPCS: 70450; 71045; 72125; 99283

== ENCOUNTER → 2019-03-30 | Outpatient (CLI) | payer MEDICARE ==
--- NOTE | 2019-03-30 12:58 | Diagnostic Imaging Report ---
Exam: Right hip and pelvis History: Hip pain Comparison: 01/06/2019 Findings: No acute, displaced fracture or dislocation. Mild joint space narrowing and marginal acetabular osteophytosis are again noted. Dystrophic calcification adjacent to the right initial tuberosity. Electronic device body projects over the left iliac wing and leads terminates over the left sacral ala, unchanged. Degenerative disc changes of the lumbar spine partially visualized. Impression: No acute osseous abnormality. Signed by: Dr. Quincy Bourne M.D. on 03/30/2019 12:54 PM
--- NOTE | 2019-03-30 13:01 | Diagnostic Imaging Report ---
Exam: Lumbar spine complete History: Back pain Comparison: CT abdomen and pelvis 09/30/2018 Findings: 5 nonrib-bearing lumbar vertebral bodies with fusion of L5 and S1. No acute, displaced fracture or subluxation. No pars interarticularis defects on the oblique radiographs. Degenerative disc changes and facet arthropathy L2-L3 through L5-S1. Sacroiliac joints are intact. Spinal stimulator device terminates anterior to the left sacral ala. Atherosclerotic vascular calcifications. Impression: No acute osseous abnormality. Multilevel degenerative disc disease and degenerative facet arthropathy. Signed by: Dr. Quincy Bourne M.D. on 03/30/2019 12:57 PM
== END ==
LOC: RAD 11:40
DX: M25.551 Pain in right hip (principal); M54.5 Low back pain
CPT/HCPCS: 72110

== ENCOUNTER → 2019-04-06 | Outpatient (CLI) | payer MEDICARE ==
[~2019-04-06] MED LIST changes: +ARICEPT5 MG PO; +ATORVASTATIN CA20 MG PO; +BIOTIN2500 MCG PO; +DIATRIZOATE MEGL/DIATRIZOA SOD 30 ML BTL PO ONE; +IOPAMIDOL 370 MG/ML 200 ML INFUS..BTL INJ ONE; +LORAZEPAM1 MG PO; -NAMENDA10 MG; +NAMENDA10 MG PO; +SODIUM CHLORIDE 0.9% 50ML 50 ML ONE; +VIT B6 PO; +VIT C PO
[2019-04-06 16:53] LABS: BLOOD UREA NITROGEN 17 mg/dL (7-26); BUN/CREATININE RATIO 20 (6-25); CREATININE, SERUM 0.85 mg/dL (0.57-1.11); EST GLOMERULAR FILTRATION RATE > 60 ML/MIN (60-)
--- NOTE | 2019-04-06 19:10 | Diagnostic Imaging Report ---
EXAM: CT of the abdomen and pelvis WITH contrast HISTORY: LOWER ABD PAIN , right side, vomiting, diarrhea, history of appendectomy, hysterectomy, oophorectomy COMPARISON: None. TECHNIQUE: The abdomen and pelvis were scanned utilizing a multidetector helical scanner. Coronal and sagittal reformats are provided. PROTOCOL: Routine IV CONTRAST: 100 cc of Isovue-370. ORAL CONTRAST: Dilute Gastrografin RADIATION DOSE: Total DLP: 294.89 mGy*cm Estimated effective dose: (DLP x 0.015 x size factor) Dose modulation, iterative reconstruction, and/or weight based adjustment of the mA/kV was utilized to reduce the radiation dose to as low as reasonably achievable. COMPLICATIONS: None FINDINGS: LOWER THORAX: Unremarkable. HEPATOBILIARY: No mass. No biliary dilation. The gallbladder is partially decompressed, but otherwise appears unremarkable. SPLEEN: No splenomegaly. PANCREAS: No focal masses or ductal dilatation. ADRENALS: No discrete adrenal nodule. KIDNEYS/URETERS: No hydronephrosis, stones, or definite solid mass lesions. Two right subcentimeter hypodensities, statistically most likely small cysts. PELVIC ORGANS/BLADDER: The urinary bladder is predominantly decompressed. GI TRACT: No dilation or wall thickening identified. Mixed contrast and fecal material throughout the colon. PERITONEUM / RETROPERITONEUM: No free air or fluid. LYMPH NODES: No pathologically enlarged lymph node. VESSELS: Diffuse scattered atherosclerotic vascular calcifications. BONES: No aggressive osseous lesion or acute fracture. Sacralized L5. Moderate right convex curvature of the thoracolumbar spine with multilevel moderate to severe degenerative disc changes and a mild degenerative anterolisthesis of L4 on L5. SOFT TISSUES: Left gluteal implanted electronic device with sacral lesion. IMPRESSION: No acute CT abnormality. Signed by: Dr. Gus Castillo D.O., M.M.M. on 04/06/2019 7:07 PM
== END ==
LOC: CT 16:00
PROVIDERS: ATTEND Internal Medicine Gastroenterology
DX: R10.30 Lower abdominal pain, unspecified (principal)
CPT/HCPCS: 36415; 74177; 82565; 84520; Q9967

== ENCOUNTER → 2019-04-09 | Day surgery (SDC) | payer MEDICARE ==
[2019-04-07 17:02] LABS: EOSINOPHILS # (AUTO) 0.2 (0.0-0.4); EOSINOPHILS % 3.6 % (0.0-6.0); HEMATOCRIT 37.5 % (34.2-44.1); HEMOGLOBIN 12.1 g/dL (12.0-16.0); LYMPHOCYTES # (AUTO) 2.2 (1.0-3.2); MEAN CORPUSCULAR HEMOGLOBIN 31.3 pg (28-32); MEAN CORPUSCULAR HGB CONC 32.3 g/dL (31-35); MEAN CORPUSCULAR VOLUME 97.2 fL (81-99); MONOCYTES # (AUTO) 0.5 (0.2-0.8); MONOCYTES % 9.1 % (4.4-11.3); NEUTROPHILS # (AUTO) 2.7 (2.1-6.9); NEUTROPHILS % 48.1 % (38.7-80.0); PLATELET COUNT 176 x10e3/uL (140-360); RED BLOOD COUNT 3.86 x10e6/uL (3.6-5.1); RED CELL DISTRIBUTION WIDTH 12.8 % (11.7-14.4)
[~2019-04-09] MED LIST changes: -DIATRIZOATE MEGL/DIATRIZOA SOD 30 ML BTL PO ONE; +EPHEDRINE SULFATE INJ 50 MG/10 ML SYR ONE; -IOPAMIDOL 370 MG/ML 200 ML INFUS..BTL INJ ONE; +LIDOCAINE HCL 2% LOCAL INJ 5 ML SDV VIAL INJ ONE; +PROPOFOL IV EMULSION 10 MG/ML 50 ML VIAL ONE; -SODIUM CHLORIDE 0.9% 50ML 50 ML ONE
--- OUTSIDE RECORDS SUMMARY | 2019-04-09 09:03 | XMS REPORT | Clinical Summary ---
Author Author [facility] Address Unknown Phone Unavailable Care Team Providers Care Case Reviewer Name Role Phone Travis Montgomery MD PCP [...] unspecified chronicity 08/31/2018 Transcribe Access Orders after 04/08/2018 Family History Medical History Relation Name Comments [...] (2 of 2 - PPSV23) INFLUENZA VACCINE 05/27/2019 09/15/2011 Implants Device Identifier Shelf Expiration Date Model / Serial / Lot Implanted Type Area Manufactur er 09/25/2017 [id number] / [id number] / NONE Itotal Ps Ipoly Implant Kit - IPM Right: Knee CONFORMIS [id number] - [id number] IMPLANT INC Implanted: Qty: 1 on 04/02/2017 by DEVICES Basim Parekh MD 01/24/2018 [id number] / NONE / [id number] 32x6mm Patella - Snone - [id number] IPM Right: Knee CONFORMIS Implanted: Qty: 1 on 04/02/2017 by IMPLANT INC Basim Parekh MD DEVICES 04/25/2018 [id number] / / [id number] Cement Bone Hiviscocty With Gm 40gr Orthopedic Right: Knee DJ [place] - [id number] Surgical ORTHOPEDIC Implanted: Qty: 2 on 04/02/2017 by Implants LLC Basim Parekh MD Results Not on fileafter 04/08/2018 Insurance Type Payer Benefit Subscriber ID Effective Phone Address Plan / Dates Group O [facility] MEDICARE AARP xxxxxxxxx 2017-P MEDICARE resent COMPLETE [facility] Advance Directives Patient has advance care planning documents, and code status on file. For more i nformation, please contact: Rolando Ramos [address] [place] [address] Date Inactivated Comments Code Status Date Activated 04/05/2017 7:51 PM Full Code 04/02/2017 5:49 PM Code Status decision reached by: Patient
--- OUTSIDE RECORDS SUMMARY | 2019-04-09 09:04 | XMS REPORT | Summary of Care ---
Author Author [facility] [place] Organization [facility] [place] Address Unknown Phone Unavailable Encounter HQ Encntr_aliconrado(FIN) [id number] Date(s): 06/05/16 - 06/05/16 [facility] [place] [address] [place] [phone] Discharge Disposition: Home or Self Care Attending Physician: Markie Butler MD Vital Signs No data available for this section Problem List No data available for this section Allergies, Adverse Reactions, Alerts No data available for this section Medications No data available for this section Results No data available for this section Immunizations No data available for this section Procedures No data available for this section Social History No data available for this section Assessment and Plan No data available for this section
--- OUTSIDE RECORDS SUMMARY | 2019-04-09 09:04 | XMS REPORT | Summary of Care ---
Author Author [facility] [place] Organization [facility] [place] Address Unknown Phone Unavailable Encounter HQ Encntr_itz([facility]) [id number] Date(s): 08/04/17 - 08/04/17 [facility] [place] [address] [place] [phone] Discharge Disposition: Home or Self Care Attending Physician: Travis Montgomery MD Vital Signs No data available for [...]
--- OUTSIDE RECORDS SUMMARY | 2019-04-09 09:04 | XMS REPORT | Summary of Care ---
Author Author [facility] [place] Organization [facility] [place] Address Unknown Phone Unavailable Encounter HQ Dedrickntr_itz(FIN) [id number] Date(s): 07/08/18 - 07/08/18 [facility] [place] [address] [place] [phone] Encounter Diagnosis Pain in right hip (Final) - 07/13/18 Low back pain (Final) - Other intervertebral disc degeneration, lumbar region (Final) - Discharge Disposition: Home or Self Care Attending Physician: Travis Motngomery MD Referring Physician: Travis Montgomery MD Vital Signs No [...]
--- OUTSIDE RECORDS SUMMARY | 2019-04-09 09:04 | XMS REPORT | Summary of Care ---
Author Author [facility] [place] Organization [facility] [place] Address Unknown Phone Unavailable Encounter HQ Encntr_itz([facility]) [id number] Date(s): 02/05/17 - 02/05/17 [facility] [place] [address] [place] [phone] Discharge Disposition: Home or Self Care Attending Physician: Basim Parekh MD Vital Signs No data available for [...]
--- OUTSIDE RECORDS SUMMARY | 2019-04-09 09:04 | XMS REPORT | Summary of Care ---
Author Author [facility] [place] Organization [facility] [place] Address Unknown Phone Unavailable Encounter HQ Encntr_itz([facility]) [id number] Date(s): 12/26/15 - 12/26/15 [facility] [place] [address] [place], [place] [address] [phone] Discharge Disposition: Home Attending Physician: Travis Montgomery MD Vital Signs [...]
--- OUTSIDE RECORDS SUMMARY | 2019-04-09 09:04 | XMS REPORT | Summary of Care ---
Author Author [facility] [place] Organization [facility] [place] Address Unknown Phone Unavailable Encounter HQ Encntr_itz([facility]) [id number] Date(s): 02/13/16 - 02/13/16 [facility] [place] [address] [place], [place] [address] [phone] Discharge Disposition: Home Attending Physician: Travis Montgomery [...]
--- OUTSIDE RECORDS SUMMARY | 2019-04-09 09:04 | XMS REPORT | Summary of Care ---
Author Author [facility] Organization [facility] Address Unknown Phone Unavailable Encounter STEPHANIE Knowles(LARA) [id number] Date(s): 03/15/19 - 03/15/19 [facility] [address] [place] [address] Discharge Disposition: Home or Self Care Attending Physician: Ottoniel Neely DO Referring Physician: Ottoniel Neely DO Vital Signs No data available for this section Problem List No data available for this section Allergies, Adverse Reactions, Alerts No data available for this section Medications No data available for this section Results Most recent to 1 oldest [Reference Range]: eGFR 80 mL/min/1.73m2 1 *NA* (03/15/19 10:37 AM) POC Creatinine 0.7 mg/dL [0.5-1.4 mg/dL] (03/15/19 10:37 AM) 1Result Comment: The eGFR is calculated using the CKD-EPI formula. In most young, healthy individuals the eGFR will be >90 mL/min/1.73m2. The eGFR declines with age. An eGFR of 60-89 may be normal in some populations, particularly the elderly, for whom the CKD-EPI formula has not been extensively validated. Use of the eGFR is not recommended in the following populations: Individuals with unstable creatinine concentrations, including patients and those with serious co-morbid conditions. Patients with extremes in muscle mass or diet. The data above are obtained from the National Kidney Disease Education Program ( NKDEP) which additionally recommends that when the eGFR is used in patients with extremes of body mass index for purposes of drug dosing, the eGFR should be mul tiplied by the estimated BMI. Immunizations No data available for this section Procedures No data available for this section Social History No data available for this section Assessment and Plan No data available for this section
--- OUTSIDE RECORDS SUMMARY | 2019-04-09 09:04 | XMS REPORT | Continuity of Care Document ---
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 03/05/2019 [facility] Pain in right hip 07/14/2018 01/25/2019 [facility] S83.241A - "OTH TEAR OF MEDIAL MENISCUS, Active 03/14/2016 [facility] M25.561 - PAIN IN RIGHT KNEE Active 02/13/2016 [facility] Z12.31 - ENCNTR SCREEN MAMMOGRAM FOR MA Active 12/12/2015 [facility] Low back pain 01/25/2019 [facility] Other intervertebral disc degeneration, lumbar region 01/25/2019 [facility] Medications Medication Details Route Status Patient Instructions Ordering Provider Order Date Source Allergies, Adverse Reactions, Alerts Substance Category Reaction Severity Reaction type Status Date Reported Comments Source Immunizations Immunization Date Given Site Status Last Updated Comments Source Results Order Name Results Value Reference Range Date Interpretation Comments Source CHEM PANEL eGFR 80 mL/min/1.73m2 03/15/2019 Result Comment: The eGFR is calculated using the [...] from the National Kidney Disease Education Program (NKDEP) which additionally recommends that when the eGFR is used in patients with extremes of body mass index for purposes of drug dosing, the eGFR should be multiplied by the estimated BMI. [facility] CHEM PANEL POC Creatinine 0.7 mg/dL 0.5 - 1.4 03/15/2019 [facility] Brain w/wo contrast MRI Brain w/wo contrast MRI EXAM: MRI BRAIN WITH AND WITHOUT CONTRAST DATE: 03/15/2019 INDICATION: RE Left inferior quadrantanopia COMPARISON: None TECHNIQUE: Multiplanar, multisequence non-contrast MRI images of the brain. Multiplanar imaging is subsequently obtained following intravenous gadolinium contrast. IV contrast: 12 mL MultiHance FINDINGS: Diffusion-weighted imaging is somewhat limited by motion. Given this limitation and as far as can be ascertained, however, there is no diffusion restriction. FLAIR imaging shows moderate chronic microvascular ischemic changes in the white matter. Mild diffuse cortical volume loss is unremarkable for age. No hemorrhage or mass lesion shown. 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 The ventricles and basal cisterns are patent. The flow voids of the proximal intracranial arteries are preserved. The central skull base including the mastoid air cells and visible paranasal sinuses are unremarkable. There is no abnormal parenchymal enhancement. There is suggestion of mild diffuse pachymeningeal enhancement along the temporal parietal convexities (best depicted on the axial and coronal postcontrast images). The intracranial vessels enhance uneventfully. IMPRESSION: 1. No hemorrhage or recent ischemic change 2. Moderate chronic microvascular ischemic changes in the white matter 3. Suggestion of mild diffuse pachymeningeal enhancement. This is nonspecific. The differential diagnosis is broad including a recent lumbar puncture, inflammatory processes/infection, granulomatous conditions (such as sarcoid), and neoplastic (such as lymphoma). Correlation with CSF studies may be considered. 03/15/2019 - - Read by: Nathan Pugh MD Dictated Date/time: 03/15/19 13:47 Electronically Signed by: Nathan Pugh 03/15/19 14:23 FINAL REPORT [facility] Hip bilat w pelvis and both lat hips DX Hip bilat w pelvis and both lat hips DX Exam: Hip bilat w pelvis and both lat hips DX Reason for Exam: - M25.551 Pain in right hip Comparison Exam: None Discussion: Mild osteoarthritis seen within the left femoral acetabular joint. Note that the left femoral acetabular joint appears tilted superior in relation to the contralateral side. No acute bony abnormalities identified. Mild osteoarthritis seen within the SI joints and pubic symphysis. No suspicious osteoblastic or osteolytic lesions seen to suggest pathologic involvement. Impression: 1. No acute bony abnormalities identified. 07/08/2018 - - Read by: Сергей Newman MD Dictated Date/time: 07/08/18 17:14 Electronically Signed by: Сергей Newman MD 07/08/18 17:20 FINAL REPORT [facility]E Barbo[facility] Spine lumbar series DX Spine lumbar series DX Exam: Spine lumbar series DX Reason for Exam: - M54.5 Low back pain Comparison Exam: 07/28/2007 Discussion: 5 non rib-bearing lumbar vertebral bodies are seen. Vertebral body heights are maintained. Mild dextroscoliosis. Minimal retrolisthesis seen of L3 on L4. Advanced degenerative disc disease and facet joint arthropathy seen within the lower lumbar spine. No suspicious osteoblastic or osteolytic lesions. Note that a lumbar spine x-ray cannot rule out ligamentous injuries or spinal cord abnormalities. No dilated loops of bowel within the visualized portions of the abdomen and pelvis. Impression: 1. Vertebral body heights are maintained. Mild dextroscoliosis. Minimal retrolisthesis seen of L3 on L4. Advanced degenerative disc disease and facet joint arthropathy seen within the lower lumbar spine. 07/08/2018 - - Read by: Сергей Newman MD Dictated Date/time: 07/08/18 17:01 Electronically Signed by: Сергей Newman MD 07/08/18 17:09 FINAL REPORT CARLEstee Barbo[facility] Sacrum/coccyx series DX Sacrum/coccyx series DX EXAM: Sacrum/coccyx series DX HISTORY: - M53.3 Sacrococcygeal disorders, not elsewhere classified COMPARISON: 06/05/2016 AP and lateral view of the sacrum. IMPRESSION: There is a trans sacral catheter which terminates unchanged in the presacral space over the left lower sacrum. No fracture, dislocation or aggressive osseous lesion is evident. 08/04/2017 - - Read by: Francesco Slater MD Dictated Date/time: 08/04/17 14:40 Electronically Signed by: Francesco Slater MD 08/04/17 14:42 FINAL REPORT [facility] Knee 3 Views Bilateral DX Knee 3 Views Bilateral DX EXAMINATION: Bilateral knees 3 views each. HISTORY: Bilateral knee pain; bilateral knee arthritis FINDINGS: AP weightbearing and PA weightbearing views of both knees and lateral views of each knee are performed and compared to bilateral knee radiographs dated 08/29/2011 and right knee radiographs dated 02/13/2016. On the left, there is unchanged mild patellofemoral compartment osteoarthritis. The medial and lateral joint spaces are normal. There is no substantial knee effusion. There is no acute fracture. On the right, there is unchanged moderate patellofemoral and lateral compartment, bicompartmental knee osteoarthritis. The medial joint space is normal. There is a small knee effusion. There is no acute fracture. IMPRESSION: 1. Unchanged mild patellofemoral compartment osteoarthritis of the left knee. 2. Unchanged moderate patellofemoral and lateral compartment, bicompartmental right knee osteoarthritis with a small right knee effusion. 02/05/2017 - - Read by: Viktor Wade MD Dictated Date/time: 02/05/17 13:06 Electronically Signed by: Viktor Wade MD 02/05/17 13:13 FINAL REPORT SAE Barboza Breast Limited Uni US Breast Limited Uni US - BREAST LIMITED UNI US/R ULTRASOUND OF RIGHT BREAST: 08/21/2016 CLINICAL: N64.4 Mastodynia. Comparison is made to exams dated: 08/21/2016 mammogram, 12/26/2015 mammogram, 07/16/2011 mammogram - [facility] and 10/25/2008 mammogram - [facility]. Color flow and real-time ultrasound of the right breast were performed on the areas of interest. No abnormalities were seen sonographically in the right breast. No sonographic correlate is identified for the patient's breast pain. IMPRESSION: BENIGN Clinical management of the patient's pain is recommended. There is no sonographic evidence of malignancy. A 1 year screening mammogram is recommended. Professional services are provided by the [facility]. Eulogio Smith M.D., cm/yoselin:08/21/2016 13:44:28 Wind Farm Engineer: Yaa Shah [facility] This exam was dictated and interpreted by [id number] for LEN Barboza. letter sent: Normal exam Ultrasound BI-RADS: 2 Benign 08/21/2016 - - Read by: Nael Smith III, MD Dictated Date/time: 08/21/16 13:44 Electronically Signed by: Nael Smith III, MD 08/21/16 13:44 FINAL REPORT LEN Barboza Digital Mammo DX Pete MA Digital Mammo DX Pete MA - DIGITAL MAMMO DX PETE MA BILATERAL DIGITAL DIAGNOSTIC MAMMOGRAM WITH CAD: 08/21/2016 CLINICAL: N64.4 Mastodynia. Current study was evaluated with a Computer Aided Detection (CAD) system. Comparison is made to exams dated: 12/26/2015 mammogram, 07/16/2011 mammogram - [facility] and 10/25/2008 mammogram - [facility]. There are scattered fibroglandular densities in both breasts. There are benign scattered calcifications in both breasts. No significant masses, calcifications, or other findings are seen in either breast. IMPRESSION: BENIGN There is no mammographic abnormality seen in the right breast to correspond with the pain, however further workup with ultrasound is recommended. There is no mammographic evidence of malignancy. Professional services are provided by the [facility] Diagnostic [facility]. Eulogio Smith M.D. cm/penrad:08/21/2016 13:43:47 Wind Farm Engineer: Jolene GONZALEZ(R)(Genoveva), [facility] This exam was dictated and interpreted by [id number] for LEN Barboza. Mammogram BI-RADS: 2 Benign 08/21/2016 - - Read by: Nael Smith III, MD Dictated Date/time: 08/21/16 13:43 Electronically Signed by: Nael Smith III, MD 08/21/16 13:43 FINAL REPORT [facility] Bone Density DXA [employer] MA Bone Density DXA [employer] MA - Bone Density D[employer] MA BONE DENSITY EVALUATION: 08/21/2016 CLINICAL DATA: Post menopausal. FINDINGS: Bone density evaluation was performed 08/21/2016 on the AP L1-L2 region of spine using a Hologic unit. The BMD average for the exam is 0.868 g/cm2. The T-score is -1.00 and the Z-score is 1.50. This matches the World Health Organization's criteria for normal bone density and places the patient within normal limits of fracture risk. An additional bone density evaluation was performed 08/21/2016 on the right femur neck using a Hologic unit. The BMD average for the exam is 0.726 g/cm2. The T-score is -1.10 and the Z-score is 1.10. This matches the World Health Organization's criteria for osteopenia and places the patient at a medium risk for fracture. An additional bone density evaluation was performed 08/21/2016 on the right hip using a Hologic unit. The BMD average for the exam is 0.806 g/cm2. The T-score is -1.10 and the Z-score is 0.90. This matches the World Health Organization's criteria for osteopenia and places the patient at a medium risk for fracture. An additional bone density evaluation was performed 08/21/2016 on the left femur neck using a Hologic unit. The BMD average for the exam is 0.669 g/cm2. The T- score is -1.60 and the Z-score is 0.60. This matches the World Health Organization's criteria for osteopenia and places the patient at a medium risk for fracture. An additional bone density evaluation was performed 08/21/2016 on the left hip using a Hologic unit. The BMD average for the exam is 0.816 g/cm2. The T-score is -1.00 and the Z-score is 1.00. This matches the World Health Organization's criteria for normal bone density and places the patient within normal limits of fracture risk. IMPRESSION: OSTEOPENIA Patient is at medium risk for fracture. Professional services are provided by the [facility]. This exam was dictated and interpreted by [id number] for LEN Smith M.D. cm/yoselin:08/21/2016 15:10:02 Wind Farm Engineer: Christelle GONZALEZ(Shannon)(Genoveva), [facility] 08/21/2016 - - Read by: Nael Smith III, MD Dictated Date/time: 08/21/16 15:10 Electronically Signed by: Nael Smith III, MD 08/21/16 15:10 FINAL REPORT LEN Barboza Spine sacrum AP/Lat DX Spine sacrum AP/Lat DX EXAM: Spine sacrum AP/Lat DX HISTORY: R33.8 Other retention of urine, Z87.442 Personal history of urinary calculi COMPARISON: None AP and lateral view of the sacrum. IMPRESSION: There is a trans sacral catheter which terminates in the presacral space over the left lower sacrum. No fracture, dislocation or aggressive osseous lesion is evident. 06/05/2016 - - Read by: Francesco Slater MD Dictated Date/time: 06/05/16 16:03 Electronically Signed by: Francesco Slater MD 06/05/16 16:04 FINAL REPORT LEN Barboza Pelvis AP DX Pelvis AP DX EXAM: Pelvis AP DX HISTORY: R33.8 Other retention of urine, Z87.442 Personal history of urinary calcul COMPARISON: None Portable view of the pelvis. No fracture or dislocation is evident. There is a catheter which terminates over the left aspect of the sacrum. There is mild degenerative change at the pubic symphysis. IMPRESSION: No acute radiographic abnormality. 06/05/2016 - - Read by: Francesco Slater MD Dictated Date/time: 06/05/16 16:04 Electronically Signed by: Francesco Slater MD 06/05/16 16:05 FINAL REPORT LEN Barboza Knee 1-2 Views unilateral DX Knee 1-2 Views unilateral DX Right Knee x-ray 2 views History: 80-year-old female with knee pain. Comparison: MRI right knee 07/05/2011. Findings: Bones are aligned and there is no fracture or subluxation. Joint spaces are narrowed at all 3 compartments with small marginal osteophytes at the lateral tibial and patellar margins. No abnormal joint effusion identified. Normal mineralization is seen. No soft tissue calcifications seen. Impression: Moderate osteoarthritic changes with tricompartmental joint space narrowing. 02/13/2016 - - Read by: Bud Tucker MD Dictated Date/time: 02/13/16 13:57 Electronically Signed by: Bud Tucker 02/13/16 14:01 FINAL REPORT SAE Barboza Digital Mammo Screening Pete MA Digital Mammo Screening Pete MA - DIGITAL MAMMO SCREENING PETE MA BILATERAL DIGITAL SCREENING MAMMOGRAM WITH CAD: 12/26/2015 CLINICAL: Z12.39 Encounter For Other Screening For Malignant Neoplasm Of Breast. Current study was evaluated with a Computer Aided Detection (CAD) system. Comparison is made to exams dated: 07/16/2011 mammogram - [facility] and 10/25/2008 mammogram - [facility]. There are scattered fibroglandular densities in both breasts. There are benign scattered calcifications in both breasts. No significant masses, calcifications, or other findings are seen in either breast. There has been no significant interval change. IMPRESSION: BENIGN There is no mammographic evidence of malignancy. A 1 year screening mammogram is recommended. Eulogio Smith M.D. cm/penrad:12/27/2015 08:33:17 Wind Farm Engineer: Jolene GONZALEZ(Shannon)(Genoveva), [facility] This exam was dictated and interpreted by [id number] for LEN Barboza. letter sent: Normal exam Mammogram BI-RADS: 2 Benign 12/26/2015 - - Read by: Nael Giles MD Dictated Date/time: 12/27/15 08:33 Electronically Signed by: Nael Giles MD 12/27/15 08:33 FINAL REPORT LEN Barboza Hip 2 views DX Hip 2 views DX Exam: Right hip x-ray, 2 views Reason for Exam: Right hip pain Comparison Exam: None Discussion: No fractures or dislocations are seen within the right hip. Mild osteoarthritis seen within the femoral acetabular joint. No intraosseous lesions identified. No evidence seen for avascular necrosis of the femoral head. The SI joint and pubic symphysis are unremarkable. Impression: 1. No acute bony abnormalities identified. 06/13/2015 - - Read by: Сергей Newman MD Dictated Date/time: 06/13/15 16:23 Electronically Signed by: Сергей Newman MD 06/13/15 16:25 FINAL REPORT SAE Barboza Shoulder series DX Shoulder series DX Exam: Right shoulder x-ray, 3 views Reason for Exam: Pain Comparison Exam: None Discussion: No acute bony abnormality seen of the right shoulder. The glenohumeral joint is intact. Mild osteoarthritis seen within the AC joint. No suspicious osteoblastic or osteolytic lesions. Linear atelectasis seen within the right lung parenchyma. Impression: 1. Mild osteoarthritis seen within the AC joint. 06/13/2015 - - Read by: Сергей Newman MD Dictated Date/time: 06/13/15 16:25 Electronically Signed by: Сергей Newman MD 06/13/15 16:26 FINAL REPORT [facility] Ribs unilateral DX Ribs unilateral DX EXAM: RIBS UNILATERAL XR RIGHT DATE: Jun 13, 2015 01:56:18 PM . CLINICAL INDICATION: rib pain. TECHNIQUE: AP and oblique views of the right ribs COMPARISON: Unavailable FINDINGS: There no displaced rib fracture destructive bony lesion identified. There is S-shaped thoracolumbar scoliosis with associated spondylosis. The right lung is clear. Costophrenic sulcus is sharp . The visualized portion of the cardiac silhouette and mediastinal contours are unremarkable. IMPRESSION: No displaced rib fracture or destructive bony lesion identified 06/13/2015 - - Read by: Mark Lazaro MD Dictated Date/time: 06/13/15 14:35 Electronically Signed by: Mark Lazaro MD 06/13/15 14:36 FINAL REPORT [facility] Vital Signs Vital Sign Value Date Comments Source Encounters Location Location Details Encounter Type Encounter Number Reason For Visit Attending Provider ADM Date DC Date Status Source [facility] [id number] Souheil Montgomery 06/13/2015 06/14/2015 [facility] [id number] Souheil Montgomery 12/26/2015 12/27/2015 [facility] [place] [place] [id number] Souheil Montgomery 02/13/2016 02/14/2016 [facility] [place] [facility] [place] [id number] Markie Hampel 06/05/2016 06/06/2016 [facility] [place] [facility] [place] [id number] Souheil Montgomery 08/21/2016 08/22/2016 [facility] [place] [facility] [place] [id number] Basim Parekh 02/05/2017 02/06/2017 [facility] [place] [facility] [place] [id number] Souheil Montgomery 08/04/2017 08/05/2017 [facility] [place] [facility] [place] [facility] [id number] Souheil Omntgomery 07/08/2018 07/09/2018 LEN QUEVEDO [facility] Outpatient [id number] Ottoniel Neely 03/15/2019 03/16/2019 [facility] Procedures Procedure Code Date Perfomer Comments Source
[2019-04-09 14:52] VITALS: BP 129/62
--- NOTE | 2019-04-09 22:04 | Operative Report ---
DATE OF PROCEDURE: 04/09/2019 SURGEON: Gerardo Montgomery MD PROCEDURES: EGD with biopsies and colonoscopy with polypectomy. INDICATIONS FOR EGD: History of melena. INDICATIONS FOR COLONOSCOPY: Lower abdominal pain and history of rectal bleeding. MEDICATIONS: The patient was done under MAC. Please see anesthesiologist's note. DESCRIPTION OF PROCEDURE: With the patient in left lateral decubitus position, flexible fiberoptic Olympus gastroscope was introduced into the esophagus under direct visualization without any difficulty. There was some patchy erythema noted in distal esophagus. The scope was then advanced with ease into the stomach traversing a small sliding hiatal hernia. The mucosa overlying the antrum and the body revealed some patchy areas of erythema, low-grade to moderate edema. Biopsies were obtained and sent to stain for H pylori. There were some mild atrophic changes noted in the body and biopsies were obtained to rule out atrophic gastritis. The pylorus was of normal contour and shape, was intubated with ease and the scope was advanced all the way to the second portion of the duodenum. The scope was then withdrawn slowly. Mucosa overlying the proximal second portion and duodenal bulb appeared to be within normal limits. The scope was then withdrawn back into the stomach and retroflexed. The mucosa overlying the fundus and cardia appeared to be within normal limits. The scope was then straightened out. It was subsequently withdrawn. The patient tolerated the procedure well. IMPRESSION: 1. Distal esophagitis, mild. 2. Small sliding hiatal hernia. 3. Rule out atrophic gastritis. PLAN: Follow up histology. Initiate Protonix 40 mg one p.o. q.a.m. a.c. DESCRIPTION OF PROCEDURE: The patient was then turned around after adequate lubrication of the anal canal. Flexible fiberoptic Olympus colonoscope was inserted into the rectum with ease and advanced all the way to the cecum. It was then withdrawn slowly. Mucosa overlying the cecum, ascending colon, transverse colon, descending colon appeared to be within normal limits. Some diverticular disease was noted to involve the distal descending and the sigmoid colon. One polyp was snared from the sigmoid colon. The rectum appeared to be within normal limits. The scope was then retroflexed into the distal rectum. Small internal hemorrhoids were noted, none of which was actively bleeding. The scope was then straightened out. It was subsequently withdrawn. The patient tolerated the procedure well. IMPRESSION: 1. Diverticulosis. 2. Sigmoid colon polyp, snared. 3. Internal hemorrhoids, non-actively bleeding. PLAN: Follow up histology. Initiate high-fiber, low-fat diet. Initiate high-fiber supplement. There is no need for a followup colonoscopy in this patient. Gerardo Montgomery MD [facility] /[id number] cc: Ilan Montgomery MD
== END | disposition home or self-care (01) ==
LOC: OR 09:02
PROVIDERS: ATTEND Internal Medicine Gastroenterology
DX: K29.50 Unspecified chronic gastritis without bleeding (principal); D12.5 Benign neoplasm of sigmoid colon; K44.9 Diaphragmatic hernia without obstruction or gangrene; B96.81 Helicobacter pylori [H. pylori] as the cause of diseases classified elsewhere; K20.9 Esophagitis, unspecified; K57.30 Diverticulosis of large intestine without perforation or abscess without bleeding; K64.8 Other hemorrhoids; I10 Essential (primary) hypertension; Z88.6 Allergy status to analgesic agent; Z88.1 Allergy status to other antibiotic agents; Z91.041 Radiographic dye allergy status; Z86.73 Personal history of transient ischemic attack (TIA), and cerebral infarction without residual deficits; Z88.0 Allergy status to penicillin; Z88.8 Allergy status to other drugs, medicaments and biological substances; Z01.810 Encounter for preprocedural cardiovascular examination; Z01.812 Encounter for preprocedural laboratory examination; Z79.82 Long term (current) use of aspirin
CPT/HCPCS: 36415; 43239; 45385; 85025; 88305; 88312; 93005; J2001; J2704; 45378; 45384; 88304

== ENCOUNTER → 2019-04-12 | Outpatient (CLI) | payer MEDICARE ==
[~2019-04-12] MED LIST changes: -EPHEDRINE SULFATE INJ 50 MG/10 ML SYR ONE; -LIDOCAINE HCL 2% LOCAL INJ 5 ML SDV VIAL INJ ONE; -PROPOFOL IV EMULSION 10 MG/ML 50 ML VIAL ONE
--- NOTE | 2019-04-12 15:48 | Diagnostic Imaging Report ---
Exam: Pelvic x-ray; 1 view and sacral series; 3 views dated 04/12/2019 History: Status post fall Comparison: 03/30/2019 Findings: Stimulator device in the posterior left soft tissues with a single lead is intact which terminates overlying the sacrum unchanged in appearance. Lower spine and hip degenerative changes are present. No acute bony abnormality or fracture is seen. Impression: No change in the pain device with a single stimulator lead. Signed by: Dr. Cody Curran DO on 04/12/2019 3:45 PM
== END ==
LOC: RAD 14:17
PROVIDERS: ATTEND Urology
DX: N39.41 Urge incontinence (principal)
CPT/HCPCS: 72170; 72220

== ENCOUNTER → 2020-01-14 | Outpatient (CLI) | payer MEDICARE ==
--- NOTE | 2020-01-14 13:04 | Diagnostic Imaging Report ---
EXAMINATION: FOOT LEFT COMPLETE, ANKLE 3+ VIEWS LEFT INDICATION: Foot, ankle pain COMPARISON: None FINDINGS: Left foot: No acute fracture or dislocation. Old fracture versus old osteotomy changes of the first metatarsal. Mild scattered degenerative changes. Left ankle: No acute fracture or dislocation. The ankle mortise is intact and symmetric. No substantial joint effusion. Medial ankle soft tissue swelling. Atherosclerotic arterial calcifications. IMPRESSION: Medial ankle soft tissue swelling. No acute osseous injury of the left ankle or left foot. Old healed fracture versus osteotomy at the first metatarsal. Signed by: Negin Pack MD on 01/14/2020 1:01 PM
== END ==
LOC: RAD 11:11
DX: M25.572 Pain in left ankle and joints of left foot (principal); M25.472 Effusion, left ankle

== ENCOUNTER 2020-09-10 19:15 | Emergency (ER) | payer MEDICARE ==
[~2020-09-10] VITALS: Ht 149.9 cm; Wt 61.2 kg
--- NOTE | 2020-09-10 20:28 | NUR ---
nurse ruddy woodruff RN was called at [facility], per ruddy HANSEN patient was only on floor for [address] valdez of information, dr valdez does not wish to do lab work.
--- NOTE | 2020-09-10 20:31 | Emergency Department Note ---
History of Present Illnes History of Present Illness Chief Complaint: General Medicine Complaints History of Present Illness This is a 84 year old female s/p fall from [facility]. According to ems, the fall was unwitnessed, unknown time how much time patient was on floor. Ms. Robles is alert x 2, states she has right hip pain. there is bruising to the right orbit. . Historian: Patient Arrival Mode: jayden ems Onset (how long ago): unknown Location: HEAD, RIGHT HIP Quality: PAIN Radiation: Reports non-radiation Severity: mild Onset quality: sudden Duration (how long): hour(s) (UNKOWN EXACTLY WHAT TIME SHE FELL AT THE [facility] TODAY) Timing of current episode: constant Progression: unchanged Chronicity: new Context: Reports trauma/injury ( ABOVE) Relieving factors: none Exacerbating factors: movement Associated symptoms: Reports denies other symptoms Past Medical/Family History Physician Review I have reviewed the patient's past medical and family history. Any updates have been documented here. Past Medical History Recent Fever: No Clinical Suspicion of Infectio: No New/Unexplained Change in Ment: No Past Medical History: Hypertension, CHF, Depression, Other Mental Illness, Hyperlipedemia Other Medical History: ALZHEIMERS DEMENTIA UNSPECIFIED PSYCHOSIS Past Surgical History: Appendectomy, Hysterectomy Other Surgery: BLADDER MESH REMOVAL Social History Smoking Cessation: Never Smoker Counseling Performed: No Alcohol Use: None Any Illegal Drug Use: No Physically hurt or threatened: No Other Last Tetanus: UNKNOWN Review of Systems Review of Systems Constitutional: Reports no symptoms EENTM: Reports no symptoms Cardiovascular: Reports no symptoms Respiratory: Reports no symptoms Gastrointestinal: Reports no symptoms Genitourinary: Reports no symptoms Musculoskeletal: Reports as per HPI Integumentary: Reports no symptoms Neurological: Reports no symptoms Psychological: Reports no symptoms Endocrine: Reports no symptoms Hematological/Lymphatic: Reports no symptoms Physical Exam Related Data Allergies: Coded Allergies: Cephalexin Monohydrate (Verified Allergy, Intermediate, 01/06/19) Penicillins (Verified Allergy, Intermediate, 01/06/19) Pentazocine Lactate (Verified Allergy, Intermediate, 01/06/19) iodine (Verified Allergy, Intermediate, 01/06/19) morphine sulfate (Verified Allergy, Intermediate, 01/06/19) codeine (Verified Allergy, Mild, 01/06/19) Triage Vital Signs Vital Signs Date Time Temp Pulse Resp B/P (MAP) Pulse Ox O2 Delivery O2 Flow Rate FiO2 09/10/20 19:29 98.0 88 20 152/82 100 Room Air Vital signs reviewed: Yes Physical Exam CONSTITUTIONAL Constitutional: Present well-developed, Present well-nourished; Absent distressed HENT HENT: Present normocephalic, Present oropharynx clear/moist, Present nose normal, Present other (PERIORBITAL RIGHT BRUSING) HENT L/R: Present left ext ear normal, Present right ext ear normal EYES Eyes: Reports PERRL, Reports conjunctivae normal NECK Neck: Present ROM normal PULMONARY Pulmonary: Present effort normal, Present breath sounds normal CARDIOVASCULAR Cardiovascular: Present regular rhythm, Present heart sounds normal, Present capillary refill normal, Present normal rate GASTROINTESTINAL Abdominal: Present soft, Present nontender, Present bowel sounds normal GENITOURINARY Genitourinary: Present exam deferred SKIN Skin: Present warm, Present dry MUSCULOSKELETAL Musculoskeletal: Present ROM normal, Present other (PAIN TO RIGHT HIP WITH ROM, NO DEFORMITY NOTED) NEUROLOGICAL Neurological: Present alert, Present oriented x 3, Present no gross motor or sensory deficits PSYCHOLOGICAL Psychological: Present mood/affect normal, Present judgement normal Results Imaging Imaging results reviewed: Yes Impressions Procedure: [id number] DX/HIP RIGHT 2-3 VW (+/- PELVIS) Exam Date: Exam Time: REPORT STATUS: Signed X-ray pelvis 1 view and right hip 2 views HISTORY: Pain. COMPARISON: X-ray pelvis 04/12/2019 FINDINGS: Bones: No acute displaced fracture. Osseous alignment is within normal limits. Joints: No dislocations. Degenerative changes in the spine hips and pelvis. Soft tissues: Electronic device and lead in the left pelvis. IMPRESSION: No acute radiographic evidence of fracture. Degenerative changes in the spine hips and pelvis. Signed by: Leobardo Andersen DO on 09/10/2020 9:08 PM Dictated By: LEOBARDO ANDERSEN DO 07 Transcribed By: ALONDRA on 09/10/202107 COPY TO: ALPHONSE HOYT MD~ Procedure: [id number] CT/CT CERVICAL SPINE WO Exam Date: 09/10/20 Exam Time: 2039 REPORT STATUS: Signed History: Trauma, fall. Comparison studies: CT cervical spine from 01/06/2019. Technique: Axial images were obtained through the cervical region.. Coronal and sagittal images reconstructed from the axial data. Dose modulation, iterative reconstruction, and/or weight based adjustment of the mA/kV was utilized to reduce the radiation dose to as low as reasonably achievable. Intravenous contrast: None Findings: Fractures: None. Soft tissue injuries: None. Atlantoaxial articulation: Intact. Alignment: Loss of normal cervical lordosis is either positional or due to muscle spasm. Mild dextrocurvature of lower cervical spine is likely positional. Cervicomedullary junction: No abnormalities. The foramen magnum is patent. Soft tissues: Atherosclerotic calcification in bilateral carotid bulbs. Vertebrae: Mild osseous demineralization. No fractures, infection or neoplasm. Degenerative changes: Mild degenerative changes in the anterior atlantodental joint. C5-C6: Moderate degenerative disc disease. Moderate right foraminal stenosis due to facet and uncovertebral arthrosis. C6-C7: Moderate degenerative disc disease. Mild bilateral foraminal stenosis due to uncovertebral arthrosis. IMPRESSION: 1. No acute cervical spine fracture or dislocation. Loss of normal cervical lordosis is either positional or due to muscle spasm. 2. Ligament, spinal cord and or vascular abnormalities cannot be excluded on the basis of this examination. 3. Mild cervical spondylosis as detailed above. Signed by: Dr. Jaz Moscoso M.D. on 09/10/2020 9:46 PM Dictated By: JAZ MOSCOSO MD 45 Transcribed By: ALONDRA on 09/10/202145 COPY TO: ALPHONSE HOYT MD~ Procedure: [id number] CT/CT BRAIN WO Exam Date: 09/10/20 Exam Time: 2039 REPORT STATUS: Signed EXAMINATION: Head CT without contrast. HISTORY:Status post fall. COMPARISON:CT brain from 01/06/2019. TECHNIQUE: Multidetector axial images were obtained from the foramen magnum to the vertex without contrast. The images were reconstructed using brain and bone algorithms. Thin section brain images were reformatted into coronal and sagittal planes. Dose modulation, iterative reconstruction, and/or weight based adjustment of the mA/kV was utilized to reduce the radiation dose to as low as reasonably achievable. Intravenous contrast: None IMAGE QUALITY: Acceptable. FINDINGS: Skull/scalp: No lytic or blastic. lesions. No surgical changes. Parenchyma: Nonspecific bilateral frontoparietal patchy white matter hypodensity are likely related to small vessel ischemic changes. No acute hemorrhage, mass or acute major vascular territorial infarct. Arteries: No density suggestive of thrombosis. Dural sinuses: No abnormal density suggestive of thrombosis. Ventricles: Mild compensated dilatation due to volume loss. No hydrocephalus. Extra-axial spaces: Unchanged posterior fossa, left retrocerebellar extra-axial cystic lesion with regional mass effect represents an arachnoid cyst. Brain volume: Mild generalized cerebral volume loss. Craniocervical junction: No mass, Chiari malformation, or basilar invagination. Sella: No mass. Paranasal/mastoid sinuses: Imaged portions unremarkable. IMPRESSION: No acute intracranial abnormality. No significant change since CT brain from 01/06/2019. Chronic findings: 1. Mild supratentorial white matter microvascular ischemic changes. 2. Mild generalized cerebral volume loss. Signed by: Dr. Jaz Moscoso M.D. on 09/10/2020 9:39 PM Dictated By: JAZ MOSCOSO MD 38 Transcribed By: ALONDRA on 09/10/202138 COPY TO: ALPHONSE HOYT MD~ Procedures 12 Lead ECG Interpretation ECG Interpretation : ECG: ECG 1 [employer]: Interpreted by ED physician Date: Sep 10, 2020 Time: 19:46 Rhythm: sinus rhythm Rate: normal BPM: 64 QRS axis: normal ST segments normal: Yes T waves normal: Yes Other findings: no other findings Clinical Impression: normal ECG Assessment & Plan Medical Decision Making MDM PT S/P FALL AT [facility] CT BRAIN ,CT C SPINE, RIGHT HIP ORDERED TO EVAL FOR FRACTURES, INTRACRANIAL INJURY(SUBDURAL BLEED, CONTUSION) Assessment & Plan Final Impression: (1) Contusion of head (2) Contusion of right hip (3) Fall Depart Disposition: DIS TO [facility] BED Last Vital Signs Date Time Temp Pulse Resp B/P (MAP) Pulse Ox O2 Delivery O2 Flow Rate FiO2 09/10/20 19:33 73 18 152/82 100 Room Air 09/10/20 19:29 98.0 Home Meds Reported Medications Biotin (BIOTIN) 2,500 Mcg Capsule, 16395 MCG PO DAILY 04/07/19 [Vit C] No Conflict Check, 1000 MG PO DAILY 04/07/19 [Vit B6] No Conflict Check, 1 TAB PO DAILY 04/07/19 Atorvastatin Calcium (ATORVASTATIN CALCIUM) 20 Mg Tablet, 40 MG PO HS, #30 TAB 04/07/19 Lorazepam (LORAZEPAM) 1 Mg Tablet, 1 MG PO PRN, TAB 04/07/19 Furosemide (FUROSEMIDE) 40 Mg Tablet, 40 MG PO PRN, #30 TAB 04/07/19 Donepezil Hcl (ARICEPT) 5 Mg Tablet, 10 MG PO HS, #60 TAB 04/07/19 Aspirin (ASPIR 81) 81 Mg Tablet.dr, 81 MG PO DAILY 04/07/19 Amlodipine Besylate (AMLODIPINE BESYLATE) 5 Mg Tablet, 10 MG PO DAILY, #30 TAB 06/30/17 Memantine Hcl (NAMENDA) 10 Mg Tablet, 10 MG PO DAILY, #30 TAB 06/30/17 ALPHONSE HOYT MD Sep 10, 2020 20:31
--- NOTE | 2020-09-10 21:12 | Diagnostic Imaging Report ---
X-ray pelvis 1 view and right hip 2 views HISTORY: Pain. COMPARISON: X-ray pelvis 04/12/2019 FINDINGS: Bones: No acute displaced fracture. Osseous alignment is within normal limits. Joints: No dislocations. Degenerative changes in the spine hips and pelvis. Soft tissues: Electronic device and lead in the left pelvis. IMPRESSION: No acute radiographic evidence of fracture. Degenerative changes in the spine hips and pelvis. Signed by: Leobardo Andersen DO on 09/10/2020 9:08 PM
--- NOTE | 2020-09-10 21:42 | Diagnostic Imaging Report ---
EXAMINATION: Head CT without contrast. HISTORY:Status post fall. COMPARISON:CT brain from 01/06/2019. TECHNIQUE: Multidetector axial images were obtained from the foramen magnum to the vertex without contrast. The images were reconstructed using brain and bone algorithms. Thin section brain images were reformatted into coronal and sagittal planes. Dose modulation, iterative reconstruction, and/or weight based adjustment of the mA/kV was utilized to reduce the radiation dose to as low as reasonably achievable. Intravenous contrast: None IMAGE QUALITY: Acceptable. FINDINGS: Skull/scalp: No lytic or blastic. lesions. No surgical changes. Parenchyma: Nonspecific bilateral frontoparietal patchy white matter hypodensity are likely related to small vessel ischemic changes. No acute hemorrhage, mass or acute major vascular territorial infarct. Arteries: No density suggestive of thrombosis. Dural sinuses: No abnormal density suggestive of thrombosis. Ventricles: Mild compensated dilatation due to volume loss. No hydrocephalus. Extra-axial spaces: Unchanged posterior fossa, left retrocerebellar extra-axial cystic lesion with regional mass effect represents an arachnoid cyst. Brain volume: Mild generalized cerebral volume loss. Craniocervical junction: No mass, Chiari malformation, or basilar invagination. Sella: No mass. Paranasal/mastoid sinuses: Imaged portions unremarkable. IMPRESSION: No acute intracranial abnormality. No significant change since CT brain from 01/06/2019. Chronic findings: 1. Mild supratentorial white matter microvascular ischemic changes. 2. Mild generalized cerebral volume loss. Signed by: Dr. Jaz Moscoso M.D. on 09/10/2020 9:39 PM
--- NOTE | 2020-09-10 21:49 | Diagnostic Imaging Report ---
History: Trauma, fall. Comparison studies: CT cervical spine from 01/06/2019. Technique: Axial images were obtained through the cervical region.. Coronal and sagittal images reconstructed from the axial data. Dose modulation, iterative reconstruction, and/or weight based adjustment of the mA/kV was utilized to reduce the radiation dose to as low as reasonably achievable. Intravenous contrast: None Findings: Fractures: None. Soft tissue injuries: None. Atlantoaxial articulation: Intact. Alignment: Loss of normal cervical lordosis is either positional or due to muscle spasm. Mild dextrocurvature of lower cervical spine is likely positional. Cervicomedullary junction: No abnormalities. The foramen magnum is patent. Soft tissues: Atherosclerotic calcification in bilateral carotid bulbs. Vertebrae: Mild osseous demineralization. No fractures, infection or neoplasm. Degenerative changes: Mild degenerative changes in the anterior atlantodental joint. C5-C6: Moderate degenerative disc disease. Moderate right foraminal stenosis due to facet and uncovertebral arthrosis. C6-C7: Moderate degenerative disc disease. Mild bilateral foraminal stenosis due to uncovertebral arthrosis. IMPRESSION: 1. No acute cervical spine fracture or dislocation. Loss of normal cervical lordosis is either positional or due to muscle spasm. 2. Ligament, spinal cord and or vascular abnormalities cannot be excluded on the basis of this examination. 3. Mild cervical spondylosis as detailed above. Signed by: Dr. Jaz Moscoso M.D. on 09/10/2020 9:46 PM
--- NOTE | 2020-09-10 22:02 | NUR ---
[facility] CALLED FOR TRANSPORT TO [facility] AT THIS TIME, ETA 30 MIN.
--- NOTE | 2020-09-10 22:44 | NUR ---
BEDSIDE REPORT GIVEN TO [facility] AT THIS TIME.
== END 2020-09-10 22:50 ==
LOC: ER 19:22
DX: S00.83XA Contusion of other part of head, initial encounter (principal); S70.01XA Contusion of right hip, initial encounter; W18.30XA Fall on same level, unspecified, initial encounter; Y92.128 Other place in nursing home as the place of occurrence of the external cause; G30.9 Alzheimer's disease, unspecified; F02.80 Dementia in other diseases classified elsewhere, unspecified severity, without behavioral disturbance, psychotic disturbance, mood disturbance, and anxiety; I10 Essential (primary) hypertension; E78.5 Hyperlipidemia, unspecified; I50.9 Heart failure, unspecified
CPT/HCPCS: 70450; 72125; 93005; 99285

== ENCOUNTER 2021-01-05 08:42 | Day surgery (SDC) | payer MEDICARE, OTHER ==
[~2021-01-05] VITALS: Ht 149.9 cm; Wt 61.2 kg
[2021-01-05] MEDS ORDERED: LIDOCAINE HCL 1% 2 ML AMP ONE (11:51)
[2021-01-05] MEDS ORDERED: PROPOFOL IV EMULSION 10 MG/ML 20 ML VIAL ONE (13:11)
[2021-01-05 16:34] LABS: ANION GAP 15.6 mmol/L (8-16); BLOOD UREA NITROGEN 18 mg/dL (7-26); BUN/CREATININE RATIO 28 (6-25); CALCIUM 8.4 mg/dL (8.4-10.2); CARBON DIOXIDE 25 mmol/L (22-29); CHLORIDE 101 mmol/L (98-107); CREATININE, SERUM 0.65 mg/dL (0.57-1.11); EST GLOMERULAR FILTRATION RATE > 60 ML/MIN (60-); GLUCOSE 113 mg/dL (74-118); POTASSIUM 3.6 mmol/L (3.5-5.1); SODIUM 138 mmol/L (136-145)
[2021-01-05] MEDS ORDERED: CLINDAMYCIN PHOS 900MG/ 50ML 50 ML IV ONE (17:15)
[2021-01-05 17:30] VITALS: BP 122/88
== END 2021-01-05 11:28 | disposition home health service (06) ==
LOC: ENDO 08:50 → OR 08:50 → ER 08:50 → EDSTATUS 08:57 → ENDO 11:28 → OR 16:24 → ER 16:24
PROVIDERS: ATTEND Student in an Organized Health Care Education/Training Program
DX: Z43.1 Encounter for attention to gastrostomy (principal); K29.70 Gastritis, unspecified, without bleeding; K26.9 Duodenal ulcer, unspecified as acute or chronic, without hemorrhage or perforation; K44.9 Diaphragmatic hernia without obstruction or gangrene; K20.90 Esophagitis, unspecified without bleeding; I48.91 Unspecified atrial fibrillation; I11.0 Hypertensive heart disease with heart failure; I50.9 Heart failure, unspecified; E78.5 Hyperlipidemia, unspecified; F32.9 Major depressive disorder, single episode, unspecified; G30.9 Alzheimer's disease, unspecified; F02.80 Dementia in other diseases classified elsewhere, unspecified severity, without behavioral disturbance, psychotic disturbance, mood disturbance, and anxiety; Z88.0 Allergy status to penicillin; Z88.6 Allergy status to analgesic agent; Z88.1 Allergy status to other antibiotic agents; Z91.041 Radiographic dye allergy status; Z79.82 Long term (current) use of aspirin
CPT/HCPCS: 36415; 43246; 80048; 93005; 99284; J2704; J2001